=== PATIENT | female | born 1950 | race Caucasian/White ===

== ENCOUNTER 2016-08-06 13:48 | Inpatient (IN) ==
--- NOTE | 2016-08-06 17:25 | Emergency Department Note ---
Disposition Clinical Impression: Swelling of lower extremity, Hyperkalemia DVT (deep venous thrombosis) Qualifiers: DVT location: lower extremity Affected thrombotic vein of extremity: unspecified vein of extremity Laterality: right Chronicity: unspecified Qualified Code(s): I82.401 - Acute embolism and thrombosis of unspecified deep veins of right lower extremity CKD (chronic kidney disease) Qualifiers: Chronic kidney disease stage: unspecified stage Qualified Code(s): N18.9 - Chronic kidney disease, unspecified Disposition: Admitted As Inpatient Condition: Good Extremity Problem HPI - General Chief complaint: ED Extremity Problem,Nontraumatic Stated complaint: right leg swelling, r/o DVT Time Seen by Provider: 08/06/16 17:15 Source: patient Mode of arrival: ambulatory Limitations: no limitations Nursing Notes Reviewed: Yes Vital Signs Reviewed: Yes - History of Present Illness HPI Narrative: 65-year-old female presents for evaluation of right lower leg swelling. Patient states that approximately 6 days ago she had some right inguinal groin pain. Since then the patient has noted progressive swelling of her lower leg over the past 2 days. No redness to the lower leg. Patient has anterior lateral thigh pain and anterior lower lateral leg pain. Patient denies any fevers. No shortness of breath or positive breathing. No active cancers. Patient does have a remote history of uterine as well as vaginal cancer. No exogenous estrogen. No recent long car rides. No hemoptysis. Patient denies a history of DVT or pulmonary embolisms. Pain Scale: 5 - Related Data Home Medications Medication Instructions Recorded Confirmed Cetirizine HCl [Zyrtec] 10 mg PO QPM 10/31/15 08/06/16 Citalopram [CeleXA] 20 mg PO QAM 10/31/15 08/06/16 Lisinopril [Zestril] 20 mg PO QAM 10/31/15 08/06/16 Magnesium Oxide [Magnesium] 500 mg PO QAM 10/31/15 08/06/16 [place]-3/Dha/Epa/Fish Oil [Fish Oil 1 each PO QPM 10/31/15 08/06/16 1,000 mg Softgel] Vitamin E (Dl,Tocopheryl Acet) 400 unit PO BID 10/31/15 08/06/16 [Vitamin E] Amlodipine [Norvasc] 2.5 mg PO QAM 08/06/16 08/06/16 Dexamethasone [Decadron] 4 mg PO DAILY 08/06/16 08/06/16 Gabapentin [Neurontin] 100 mg PO BID 08/06/16 08/06/16 Hydroxyzine HCl 25 mg PO BID PRN 08/06/16 08/06/16 Lisinopril [Zestril] 10 mg PO QPM 08/06/16 08/06/16 Metoprolol Tartrate 25 mg PO BID 08/06/16 08/06/16 Allergies Allergy/AdvReac Type Severity Reaction Status Date / Time doxycycline Allergy Itching Verified 08/06/16 18:53 nystatin [From Mycolog II] Allergy Rash Verified 08/06/16 18:53 Penicillins Allergy Swelling Verified 08/06/16 18:53 of Lip/Tongue/Throat Sulfa (Sulfonamide Allergy See Verified 08/06/16 18:53 Antibiotics) Comments triamcinolone Allergy Rash Verified 08/06/16 18:53 [From Mycolog II] All systems ED: reviewed and negative except as stated. Constitutional: Reports: as per HPI. Denies: fever Eyes: Reports: as per HPI ENT ED: Reports: as per HPI Cardiovascular: Reports: as per HPI. Denies: chest pain, palpitations Respiratory: Reports: as per HPI. Denies: cough, dyspnea Gastrointestinal: Reports: as per HPI. Denies: abdominal pain, nausea, vomiting Genitourinary: Reports: as per HPI Musculoskeletal: Reports: as per HPI Integumentary: Reports: as per HPI Neurological: Reports: as per HPI. Denies: headache Psychiatric: Reports: as per HPI Endocrine: Reports: as per HPI Hematological/Lymphatic: Reports: as per HPI Allergic/Immunologic: Reports: as per HPI Past Medical History - Past Medical History Medical history: Reports: hypertension, other Surgical history: Reports: non-contributory Psychiatric history: Reports: no psych history - Social History Smoking Status: Current every day smoker Smokeless Tobacco Status: No Alcohol use: Reports: occasionally Drug use: Reports: none Physical Exam - General Limitations: no limitations General appearance: alert, in no apparent distress - Head Head exam: atraumatic, normocephalic, normal inspection - Eye Eye exam: Present: normal appearance, EOMI - ENT ENT exam: normal exam, normal oropharynx, mucous membranes moist - Neck Neck exam: Present: normal inspection, trachea midline - Chest Chest inspection: Present: normal inspection, symmetric chest wall rise - Respiratory Respiratory exam: Present: normal lung sounds bilaterally. Absent: respiratory distress - Cardiovascular Cardiovascular exam: Present: regular rate, normal rhythm, +S1, +S2 - Abdominal Exam Abdominal exam: Present: soft, Non-Tender - Expanded Lower Extremity Exam Hip/Pelvis exam: Present: normal inspection. Absent: tenderness Upper leg exam: Present: normal inspection, tenderness (Right leg anterior lateral), swelling (Right leg). Absent: ecchymosis Knee exam: Present: normal inspection Lower leg exam: Present: normal inspection, tenderness (Anterior lateral), swelling (Right leg). Absent: ecchymosis, deformity, crepitus, palpable cord, Homans' sign Ankle exam: Present: normal inspection Neurovascular/Tendon exam: Present: normal capillary refill, pulse deficit ( palpable dp) - Back Exam Back exam: Present: normal inspection - Neurological Exam Neurological exam: Present: alert, oriented X3, CN II-XII intact - Skin Skin exam: Present: warm, dry, intact, normal color Course Course Narrative: Patient seen and examined. Patient has a history concerning for blood clot in her right lower leg. Patient then venous Doppler of the right lower leg as well as basic lab work including chemistries and coagulation studies. - Reevaluation(s) Reevaluation #1: Patient seen and examined. Patient's in no acute distress. Patient's studies show diffuse right lower leg clot burden with clots in the deep and superficial veins of the right leg. Patient denies any chest pain or shortness of breath. Patient's not hypoxic. Patient was started on heparin. Time: 18:46 Vital Signs Temperature 98.3 F 08/06/16 15:00 Pulse Rate 66 08/06/16 15:00 Respiratory Rate 18 08/06/16 15:00 Blood Pressure 108/49 08/06/16 15:00 O2 Sat by Pulse Oximetry 96 08/06/16 15:00 Temperature 98.3 F 08/06/16 15:00 Pulse Rate 61 08/06/16 18:26 Respiratory Rate 18 08/06/16 19:31 Blood Pressure 107/49 08/06/16 19:31 O2 Sat by Pulse Oximetry 97 08/06/16 18:26 Oxygen Delivery Oxygen Delivery Room Air Extremity Problem, Nontraumati - MDM Narrative Medical decision making narrative: 65-year-old female presents for reevaluation of right lower leg swelling. Concerns of DVT. Patient denies any risk factors. No recent travel no exogenous estrogen. No hemoptysis. No recent trauma to the lower leg. Patient has no risk factors to provoke a blood clot. Patient had imaging of the lower leg which shows diffuse clot burden in this deep and superficial venous system. Patient will be admitted to the hospital for further evaluation monitoring. Patient was started on heparin. CTA was not ordered in the emergency department as the patient has not been having a short course of breath or chest pain. Would not really change treatment management. Patient was updated on plan of care. Patient denies any symptoms at this time. Patient 's lab work does show hyperkalemia of 5.9. Patient does have evidence chronic kidney disease. - Lab Data Lab results reviewed: Yes I reviewed the patient's lab results. Result diagrams: 08/06/16 18:36 08/06/16 18:36 Lab Results 08/06/16 08/06/16 08/06/16 Range/Units 18:36 18:36 18:36 WBC 10.8 (4.3-11.1) K/mcL RBC 4.03 (3.82-4.97) M/mcL Hgb 10.1 L (11.5-15.4) g/dL Hct 33.1 L (35.3-44.9) % MCV 82.1 L (83.0-100.0) fL MCH 25.1 L (28.0-33.3) pg MCHC 30.5 L (31.6-35.5) g/dL RDW 14.6 H (11.5-14.5) % Plt Count 257 (140-400) K/mcL MPV 9.8 (9.4-12.4) fL PT 10.7 (9.4-12.1) Seconds INR 1.0 APTT 24.4 L (26.0-36.0) Seconds Sodium 138 (136-145) mEq/L Potassium 5.9 H (3.5-4.5) mEq/L Chloride 106 (98-109) mEq/L Carbon Dioxide 22 (19-29) mEq/L BUN 26 H (7-20) mg/dL Creatinine 1.32 H (0.57-1.11) mg/dL Est GFR ( Amer) 49 L (> 60) Est GFR (Non-Af Amer) 41 L (> 60) BUN/Creatinine Ratio 20 (6-26) Glucose 80 (70-99) mg/dL Calculated Osmolality 290 (280-300) Calcium 8.8 (8.6-10.8) mg/dL S.B.A.R. - S.B.A.RWen Situation: Demographics Background: Presenting Complaint Assessment: Vital Signs, Course and respsone to treatment, Patient/Family Expectation Recommendation: Barrier(s) to disposition, Recommendation based on pending studies, treatments, or consults S.B.A.R. Report Given to: Dr. Campbell SVietAJoya Repor Time: 18:50 Attestation Statement - Attestation Attestation: I examined this patient and my medical decision-making was reviewed with the DIRECTOR APPOINTMENT/PA/Advanced Practice Nurse/Resident Physician. I agree with the documented findings, disposition and treatment plan as described except to the extent set forth below. Patient emergency department with a chief complaint of right leg swelling. She started having pain in her groin a few days ago. Now the entire leg is swollen. On exam she is awake and alert in no distress. Heart regular rate and rhythm lungs clear. Abdomen soft nontender. She does have significant amount of swelling to the right leg with no palpable cord. Foot pink and warm with a good pulse. Plan. Ultrasound rule out DVT.
[2016-08-06] MEDS ORDERED: *HR* Heparin 5,000 UNIT/ML VIAL IVP ONE (18:23)
[2016-08-06 18:42] LABS: Hematocrit 33.1 % (35.3-44.9); Hemoglobin 10.1 g/dL (11.5-15.4); Mean Corpuscular HGB Conc 30.5 g/dL (31.6-35.5); Mean Corpuscular Hemoglobin 25.1 pg (28.0-33.3); Mean Corpuscular Volume 82.1 fL (83.0-100.0); Mean Platelet Volume 9.8 fL (9.4-12.4); Platelet Count 257 K/mcL (140-400); Red Blood Count 4.03 M/mcL (3.82-4.97); Red Cell Distribution Width 14.6 % (11.5-14.5)
[2016-08-06 18:49] LABS: Prothrombin Time 10.7 Seconds (9.4-12.1)
[2016-08-06 18:51] LABS: Activated Partial Thrombo Time 24.4 Seconds (26.0-36.0)
[2016-08-06 18:56] LABS: Calcium 8.8 mg/dL (8.6-10.8); Potassium 5.9 mEq/L (3.5-4.5)
[2016-08-06] MEDS: Heparin 25,000 UNIT/500 ML D5W 25,000 UNIT/500 ML MLS IVC SCH (19:05)
[2016-08-06] MEDS ORDERED: Acetaminophen 325 MG TABLET PO PRN (20:13)
--- NOTE | 2016-08-06 20:32 | Internal Med History&Physical ---
Addendum entered and electronically signed by Damián Alegria DO 23:44: Correction: Time of encounter: 20:00 Original Note: <Damián Alegria - Last Filed: 08/06/16 22:05> Date of Encounter: 08/06/16 Time of Encounter: 08:00 Assessment and Plan (1) DVT (deep venous thrombosis) Current visit: Yes Status: Acute DVT of R lower extremity. Verbal confirmation, radiology sending preliminary report now. Risk factors include: History of cancer and smoking history. Denies trauma, travel. Denies shortness of breath. Patient currently on Heparin drip. Need to discussed detention anticoagulation. With history of GI bleed and anemia, patient a more likely candidate for coumadin or other anticoagulation therapy with reversal agents available. Qualifiers: DVT location: lower extremity Affected thrombotic vein of extremity: unspecified vein of extremity Laterality: right Chronicity: unspecified Qualified Code(s): I82.401 - Acute embolism and thrombosis of unspecified deep veins of right lower extremity (2) Hyperkalemia Current visit: Yes Status: Acute Acute on chronic. History of elevated potassium. Currently 5.9, compared to past K+ stable at 4.5. Holding lisinopril. EKG ordered. Kayexalate ordered, will recheck K+. Continue to monitor electrolytes and for EKG changes. EKG reviewed: no peaked T waves noted. (3) CKD (chronic kidney disease) Current visit: Yes Status: Chronic CKD secondary to NSAID use in the setting of chronic back pain due to DDD. Stage 3, SCr 1.32, eGFR 41. Avoid nephrotoxins. Qualifiers: Chronic kidney disease stage: stage 3 (moderate) Qualified Code(s): N18.3 - Chronic kidney disease, stage 3 (moderate) (4) Anemia Current visit: Yes Status: Chronic History of hospitalization 2 years ago, requiring multiple transfusions. Bleeding GI ulcer found at that time. Patient states she take acid reducers prn. Ongoing history of anemia, patient states goal has been to keep Hgb around 12. Currently H/H is 10.1/33.1. Patient does note recent increased "gurgling", denies any changes in bowel movements, denies melena. Start protonix. Monitor H/H. Qualifiers: Iron deficiency anemia type: chronic blood loss Qualified Code(s): D50.0 - Iron deficiency anemia secondary to blood loss (chronic) (5) HTN (hypertension) Current visit: Yes Status: Chronic Continue home medications, with exception of holding lisinopril currently in the setting of increased Potassium. Consider resuming as potassium improves. CKD currently stable. Qualifiers: Hypertension type: essential hypertension Qualified Code(s): I10 - Essential (primary) hypertension (6) History of uterine cancer Current visit: Yes Status: Chronic Uterine cancer 30 years ago, vaginal cancer 20 years ago. Underwent hysterectomy and chemo. Been in remission since. (7) Tobacco use Current visit: No Status: Chronic Current 1ppd smoker. Ordered nicotine patch. Patient notes history of pneumonia approx 2-4 weeks ago. Clinically improving since. Internal Medicine - H&P: HPI Chief complaint: Right leg swelling Admitted From: Emergency Dept Plans for Post Hospital Care: Home History of present illness: Ms. Brantley is a 65 year old female that presented to the ED for gradual right leg swelling, that began with right groin pain 6 days ago. PMHx of CKD, uterine/ vaginal cancer, anemia, HTN, and DDD in her back. Patient states the groin pain was severe enough to wake her at approx 3am on 07/31/16. That pain has since subsided, but her right leg has continued to swell and has been painful the past 2 days. Patient states her right leg throbs, has some numbness and tingling at times, and she rates the severity as a 5/10 currently. Patient denies any weakness in the extremity or any color/skin changes. Patient denies any nausea, vomiting, abdominal pain, melena, diarrhea. Of note, patient mentions improving respiratory status. Jac diagnosed with pneumonia approx 2 weeks ago, denies any shortness of breath. Patient does admit to cough and continuing to smoke 1 ppd. Past Med Surg Social Fam HX - Past Medical History Medical history: hypertension, other Psychiatric history: no psych history - Past Surgical History Surgical History: non-contributory - Social History Smoking Status: Current every day smoker Smokeless Tobacco Status: No Alcohol use: occasionally Drug use: none - Family History Mother Adopted: No Hx Family Cardiac Disorders: Yes Hx Family Endocrine Disorder: Yes (dm) Father Living Status: Hx Family Cardiac Disorders: Yes (HTN) Hx Family Respiratory Disorders: Yes (COPD) Internal Medicine - H&P: Meds Cetirizine HCl [Zyrtec] 10 mg PO QPM 10/31/15 [History] Citalopram [CeleXA] 20 mg PO QAM 10/31/15 [History] Lisinopril [Zestril] 20 mg PO QAM 10/31/15 [History] Magnesium Oxide [Magnesium] 500 mg PO QAM 10/31/15 [History] [place]-3/Dha/Epa/Fish Oil [Fish Oil 1,000 mg Softgel] 1 each PO QPM 10/31/15 [ History] Vitamin E (Dl,Tocopheryl Acet) [Vitamin E] 400 unit PO BID 10/31/15 [History] Amlodipine [Norvasc] 2.5 mg PO QAM 08/06/16 [History] Dexamethasone [Decadron] 4 mg PO DAILY 08/06/16 [History] Gabapentin [Neurontin] 100 mg PO BID 08/06/16 [History] Hydroxyzine HCl 25 mg PO BID PRN 08/06/16 [History] Lisinopril [Zestril] 10 mg PO QPM 08/06/16 [History] Metoprolol Tartrate 25 mg PO BID 08/06/16 [History] Allergies doxycycline Allergy (Verified 08/06/16 18:53) Itching nystatin [From Mycolog II] Allergy (Verified 08/06/16 18:53) Rash Penicillins Allergy (Verified 08/06/16 18:53) Swelling of Lip/Tongue/Throat Sulfa (Sulfonamide Antibiotics) Allergy (Verified 08/06/16 18:53) See Comments Swelling triamcinolone [From Mycolog II] Allergy (Verified 08/06/16 18:53) Rash All Systems PM: A 10-system review of systems was performed and is negative for pertinent findings except as documented above in the HPI. - Constitutional Constitutional: no falls, no lethargy - Cardiovascular Cardiovascular ROS IM: as per HPI, edema, no chest pain, no dyspnea, no lightheadedness, no palpitations, no syncope - Respiratory Respiratory: as per HPI, cough, wheezing - Gastrointestinal Gastrointestinal: belching (increased "gurgling"), no abdominal pain, no change in bowel habits, no change in stool character, no diarrhea, no hematemesis, no melena, no nausea, no vomiting - Genitourinary Genitourinary: no dysuria - Musculoskeletal Musculoskeletal ROS IM: back pain, muscle cramps, numbness, tingling - Neurological Neurological ROS: numbness, tingling, no dizziness - Constitutional Vitals: Temp Pulse Resp BP Pulse Ox 98.3 F 61 18 107/49 97 08/06/16 15:00 08/06/16 18:26 08/06/16 19:31 08/06/16 19:31 08/06/16 18:26 General appearance: Present: cooperative, A&O X 3, no acute distress, obese, answers questions appropriately - Head Head exam: Present: atraumatic, normocephalic - Eye Eye exam: Present: EOMI, PERRL, conjuntiva pink, sclera anicteric Pupils: Present: PERRL - Neck Neck exam general surgery: Present: full ROM, supple, trachea midline - Respiratory Respiratory exam: Present: rhonchi, wheezes. Absent: accessory muscle use, rales, respiratory distress - Cardiovascular Cardiovascular exam: Present: RRR, +S1, +S2. Absent: diastolic murmur, gallop, rubs, systolic murmur - GI/Abdominal GI/Abdominal exam: Present: normal bowel sounds, soft, no peritoneal signs. Absent: distended, tenderness - Extremities Exam Extremities exam: Present: calf tenderness, pedal edema (Nonpitting, swelling of the R>L ), warm, radial pulses palpable and symetrical. Absent: cyanotic, mottling - Neurological Exam Neurological exam: Present: alert, oriented X3, no focal deficits. Absent: facial droop, speech deficit - Skin Skin exam: Present: dry, intact Internal Med - H&P Results - Labs CBC & Chem 7: 08/06/16 18:36 08/06/16 18:36 - EKG Data -: EKG Interpreted by Myself EKG shows normal: sinus rhythm Rate: normal - EKG Data Prior EKG available for review: no <Mulu Campbell - Last Filed: 08/07/16 00:07> Date of Encounter: 08/07/16 Internal Medicine - H&P: HPI History of present illness: Ms. Brantley is a 65 year old female All Systems PM: A 10-system review of systems was performed and is negative for pertinent findings except as documented above in the HPI. - Constitutional Vitals: Temp Pulse Resp BP Pulse Ox 98.5 F 64 16 99/63 93 L 08/06/16 23:33 08/06/16 23:33 08/06/16 23:33 08/06/16 23:33 08/06/16 23:33 Internal Med - H&P Results - Labs CBC & Chem 7: 08/06/16 18:36 08/06/16 18:36 - Attending Attestation I have seen and examined pt, I discussed with resident regarding the management plan, I agree with the documentation.
[2016-08-06] MEDS ORDERED: Ipratropium/Albuterol Neb 3 ML IH PRN (22:01)
[2016-08-06] MEDS: Gabapentin 100 MG CAPSULE PO SCH (23:07)
[2016-08-07] MEDS ORDERED: *HR* Heparin 5,000 UNIT/ML VIAL IVP PRN ×2 (00:11)
[2016-08-07] MEDS: Famotidine 20 MG TABLET PO SCH ×3 (01:00→21:27)
[2016-08-07 01:23] LABS: Basophils # 0.1 K/mcL (0.0-0.2); Basophils % 0.5 %; Eosinophils # 0.6 K/mcL (0.0-0.6); Eosinophils % 6.3 %; Hematocrit 29.3 % (35.3-44.9); Hemoglobin 8.9 g/dL (11.5-15.4); Immature Granulocytes % 0.7 % (0-4); Lymphocytes # 3.2 K/mcL (0.6-4.6); Lymphocytes % 33.8 %; Mean Corpuscular HGB Conc 30.4 g/dL (31.6-35.5); Mean Corpuscular Hemoglobin 24.9 pg (28.0-33.3); Mean Corpuscular Volume 81.8 fL (83.0-100.0); Mean Platelet Volume 9.5 fL (9.4-12.4); Monocytes # 0.9 K/mcL (0.0-1.3); Monocytes % 9.4 %; Neutrophils # 4.6 K/mcL (1.6-8.9); Platelet Count 222 K/mcL (140-400); Red Blood Count 3.58 M/mcL (3.82-4.97); Red Cell Distribution Width 14.3 % (11.5-14.5); Segmented Neutrophils % 49.3 %
[2016-08-07] MEDS ORDERED: Mag Hydrox/Al Hydrox/Simeth 30 ML UDC PO PRN (01:24)
[2016-08-07 01:28] LABS: INR 1.1; Prothrombin Time 11.4 Seconds (9.4-12.1)
[2016-08-07 01:32] LABS: Activated Partial Thrombo Time 92.4 Seconds (26.0-36.0)
[2016-08-07 01:36] LABS: Calcium 8.5 mg/dL (8.6-10.8); Potassium 3.9 mEq/L (3.5-4.5)
[2016-08-07 08:33] LABS: INR 1.1; Prothrombin Time 11.5 Seconds (9.4-12.1)
[2016-08-07 08:50] LABS: Activated Partial Thrombo Time 77.9 Seconds (26.0-36.0)
[2016-08-07] MEDS: Magnesium Oxide 400 MG TABLET PO SCH (08:54)
[2016-08-07] MEDS: Pantoprazole 40 MG VIAL IVP SCH (08:54)
[2016-08-07] MEDS: Gabapentin 100 MG CAPSULE PO SCH ×2 (08:55→21:28)
[2016-08-07] MEDS: Nicotine 14 MG PATCH.TD24 TD SCH (08:55)
[2016-08-07] MEDS: amLODIPine 5 MG TABLET PO SCH (08:55)
[2016-08-07] MEDS ORDERED: *HR* Warfarin 5 MG TABLET PO ONE (14:33)
--- NOTE | 2016-08-07 14:41 | Internal Med Progress Note ---
Date of Encounter: 08/07/16 Time of Encounter: 10:00 - Assessment and plan (1) DVT (deep venous thrombosis) Current Visit: Yes Status: Acute Assessment and plan: Patient has acute DVT. There is no clear provoking factors. We will continue heparin drip and start by mouth Coumadin today. Patient is at high risk because she is on heparin drip, which need closely monitoring Qualifiers: DVT location: lower extremity Affected thrombotic vein of extremity: unspecified vein of extremity Laterality: right Chronicity: unspecified Qualified Code(s): I82.401 - Acute embolism and thrombosis of unspecified deep veins of right lower extremity (2) DVT prophylaxis Current Visit: Yes Status: Acute Assessment and plan: Patient is on heparin drip and Coumadin (3) CKD (chronic kidney disease) Current Visit: Yes Status: Chronic Assessment and plan: Stable at her baseline Qualifiers: Chronic kidney disease stage: stage 3 (moderate) Qualified Code(s): N18.3 - Chronic kidney disease, stage 3 (moderate) (4) HTN (hypertension) Current Visit: Yes Status: Chronic Assessment and plan: BP is stable. Continue metoprolol and hydralazine. Hold lisinopril because of CKD Qualifiers: Hypertension type: essential hypertension Qualified Code(s): I10 - Essential (primary) hypertension (5) Tobacco use Current Visit: No Status: Chronic Assessment and plan: Patient is on nicotine patch - Time Spent With Patient Greater than 35 minutes - Subjective Interval history: Patient is a 65-year-old female admitted for right leg pain and swelling, diagnosed as acute DVT. Past medical history is significant for hypertension. I have seen and examined the patient today. She said that she has less pain on her right leg. The right leg is still swelling and thicker than the left side. Discussed with patient the options ORAL anticoagulations. Patient preferred Coumadin because she has financial concern for new oral anticoagulation medications. Will start Coumadin today, continue Bridged with heparin drip, closely follow up PT/INR. - Constitutional Vitals: Temp Pulse Resp BP Pulse Ox 98.4 F 62 16 116/68 96 08/07/16 07:50 08/07/16 07:50 08/07/16 07:50 08/07/16 07:50 08/07/16 07:50 General appearance: Present: cooperative, A&O X 3, no acute distress, obese, answers questions appropriately - Head Head exam: Present: atraumatic, normocephalic - Eye Eye exam: Present: PERRL, conjuntiva pink, sclera anicteric Pupils: Present: PERRL - Neck Neck exam general surgery: Present: supple, trachea midline. Absent: lymphadenopathy - Respiratory Respiratory exam: Present: CTAB. Absent: accessory muscle use, rales, rhonchi, wheezes - Cardiovascular Cardiovascular exam: Present: RRR, +S1, +S2. Absent: diastolic murmur, gallop, rubs, systolic murmur - GI/Abdominal GI/Abdominal exam: Present: normal bowel sounds, soft, no peritoneal signs. Absent: distended, tenderness - Extremities Exam Extremities exam: Present: calf tenderness (On the right leg), warm, radial pulses palpable and symetrical. Absent: cyanotic, pedal edema Additional comments: Right leg swelling and it is thicker than the left one - Neurological Exam Neurological exam: Present: CN II-XII intact, oriented X3, no focal deficits. Absent: pronater drift, facial droop, speech deficit - Skin Skin exam: Present: dry, intact Internal Medicine: Result - Labs CBC & Chem 7: 08/07/16 01:04 08/07/16 01:04 - ABG Interpretation ABG results: PT/INR, D-dimer PT 11.5 Seconds (9.4-12.1) 08/07/16 08:02 Consult Discharge Plan - Plan Referrals: Rebecca Gilbert CNP [Primary Care Provider] - 08/16/16 9:30 am
--- NOTE | 2016-08-07 15:53 | Electrocardiograph Report ---
[facility] Test Date: 2016-08-06 Pat Name: Jack Brantley Department: 115 Room: 3A41 Gender: F Senior Web Applications Developer: JIM : 1950 Requested By: Damián Alegria Order Number: [id number] Reading MD: Maddy Almonte Measurements Intervals [place] Rate: 67 P: 62 VT: 163 QRS: 23 QRSD: 102 T: 11 QT: 410 QTc: 426 Interpretive Statements SINUS RHYTHM PROBABLE INFERIOR MYOCARDIAL INFARCTION, PROBABLY OLD Electronically Signed On 08-07-16 15:51:15 EST by Maddy Almonte
[2016-08-07] MEDS: Heparin 25,000 UNIT/500 ML D5W 25,000 UNIT/500 ML MLS IVC SCH (16:04)
[2016-08-07] MEDS: Loratadine 10 MG TABLET PO SCH (17:14)
--- NOTE | 2016-08-07 17:33 | Venous Imaging Report ---
LE Venous Duplex Patient Name:Jack Brantley Order Number:[id number] Procedure Date:08/06/2016 Date:1950ge:65 yrs Gender:Female Rt.BP:108 / 49 mmHgHeart Rate: Location:[facility] ED Room #: ER5 Biologist:Kayla Armenta Referring MD:Dnai López DO mud logger:Rebecca Gilbert, ACCESS SERVICES LIBRARIAN Reading MD:Dino Nguyen MD , FACS Primary Indications:Swelling of limb Secondary Indications: Impressions: Lower extremity abnormal deep exam: right iliac through tibial vein demonstrates acute thrombosis. Lower extremity abnormal superficial exam: right great saphenousvein and lesser saphenous vein demonstrate acute thrombosis. Left lower extremity: normal contralateral exam. Recommendations: Test completed on 08/06/2016 at 6:18:00 pm. Critical findings reported to Dr López and Dr Mcqueen in person at 6:20:00 pm on 08/06/2016 by Kayla Armenta. Findings Venous Duplex Results: Right: There is an acute occlusive thrombus seen in the right distal iliac. It demonstrates an incompressible vein. Flow was absent and it did not augment. There is an acute occlusive thrombus seen in the right common femoral. It demonstrates an incompressible vein. Flow was absent and it did not augment. There is an acute occlusive thrombus seen in the right superficial femoral. It demonstrates an incompressible vein. Flow was absent and it did augment. There is an acute partially occlusive thrombus seen in the right popliteal. It demonstrates a partially compressible vein. Flow was continuous and it did not augment. There is an acute partially occlusive thrombus seen in the right posterior tibial. It demonstrates a partially compressible vein. Flow was continuous and it did augment. There is an acute partially occlusive thrombus seen in the right peroneal. It demonstrates a partially compressible vein. Flow was continuous and it did augment. There is an acute partially occlusive thrombus seen in the right great saphenous. It demonstrates a partially compressible vein. Flow was continuous and it did not augment. There is an acute partially occlusive thrombus seen in the right lesser saphenous. It demonstrates a partially compressible vein. Flow was continuous and it did not augment. Left: Venous imaging of the lower extremity reveals full patency and normal vessel compressibility of the left common femoral. Doppler signals in the evaluated veins were normal. Prior Study: No prior study available for comparison. Lower Extremity Venous Duplex Side Vein Compress Spontaneous Flow Augment Diameter (cm) Depth (cm) Right Distal Iliac None no Absent no Right Common Femoral None no Absent no Right Superficial Femoral None no Absent yes Right Popliteal Partial no Continuous no Right Posterior Tibial Partial no Continuous yes Right Peroneal Partial no Continuous yes Right Great Saphenous Partial no Continuous no Right Lesser Saphenous Partial no Continuous no Left Common Femoral Normal yes Phasic yes Updated by Dino Nguyen MD, FACS on 08/07/2016 5:29:22 PM Dino Nguyen MD electronically signed on 08/07/2016 5:29:48 PM with status of Final
[2016-08-08 05:58] LABS: Basophils # 0.1 K/mcL (0.0-0.2); Basophils % 0.7 %; Eosinophils # 0.4 K/mcL (0.0-0.6); Eosinophils % 5.9 %; Hematocrit 28.2 % (35.3-44.9); Hemoglobin 8.5 g/dL (11.5-15.4); Immature Granulocytes % 0.6 % (0-4); Lymphocytes # 2.1 K/mcL (0.6-4.6); Lymphocytes % 30.2 %; Mean Corpuscular HGB Conc 30.1 g/dL (31.6-35.5); Mean Corpuscular Hemoglobin 24.7 pg (28.0-33.3); Mean Platelet Volume 9.6 fL (9.4-12.4); Monocytes # 0.7 K/mcL (0.0-1.3); Monocytes % 9.3 %; Neutrophils # 3.7 K/mcL (1.6-8.9); Platelet Count 224 K/mcL (140-400); Red Blood Count 3.44 M/mcL (3.82-4.97); Red Cell Distribution Width 14.5 % (11.5-14.5); Segmented Neutrophils % 53.3 %
[2016-08-08 06:03] LABS: INR 1.1; Prothrombin Time 11.6 Seconds (9.4-12.1)
[2016-08-08] MEDS: Magnesium Oxide 400 MG TABLET PO SCH (08:41)
[2016-08-08] MEDS: Famotidine 20 MG TABLET PO SCH ×2 (08:41→21:03)
[2016-08-08] MEDS: Pantoprazole 40 MG VIAL IVP SCH (08:41)
[2016-08-08] MEDS: amLODIPine 5 MG TABLET PO SCH (08:42)
[2016-08-08] MEDS: Gabapentin 100 MG CAPSULE PO SCH ×2 (08:42→21:03)
[2016-08-08] MEDS: Nicotine 14 MG PATCH.TD24 TD SCH (08:43)
[2016-08-08] MEDS: Heparin 25,000 UNIT/500 ML D5W 25,000 UNIT/500 ML MLS IVC SCH (13:45)
--- NOTE | 2016-08-08 14:44 | Internal Med Progress Note ---
Date of Encounter: 08/08/16 Time of Encounter: 10:00 - Assessment and plan (1) DVT (deep venous thrombosis) Current Visit: Yes Status: Acute Assessment and plan: Patient has acute DVT. There is no clear provoking factors. We will continue heparin drip and start by mouth Coumadin. Patient is at high risk because she is on heparin drip, which need closely monitoring Qualifiers: DVT location: lower extremity Affected thrombotic vein of extremity: unspecified vein of extremity Laterality: right Chronicity: unspecified Qualified Code(s): I82.401 - Acute embolism and thrombosis of unspecified deep veins of right lower extremity (2) DVT prophylaxis Current Visit: Yes Status: Acute Assessment and plan: Patient is on heparin drip and Coumadin (3) CKD (chronic kidney disease) Current Visit: Yes Status: Chronic Assessment and plan: Stable at her baseline Qualifiers: Chronic kidney disease stage: stage 3 (moderate) Qualified Code(s): N18.3 - Chronic kidney disease, stage 3 (moderate) (4) HTN (hypertension) Current Visit: Yes Status: Chronic Assessment and plan: BP is stable. Continue metoprolol and hydralazine. Hold lisinopril because of CKD Qualifiers: Hypertension type: essential hypertension Qualified Code(s): I10 - Essential (primary) hypertension (5) Tobacco use Current Visit: No Status: Chronic Assessment and plan: Patient is on nicotine patch - Time Spent With Patient Greater than 35 minutes - Subjective Interval history: Patient is a 65-year-old female admitted for right leg pain and swelling, diagnosed as acute DVT. Past medical history is significant for hypertension. I have seen and examined the patient today. She said that she has less pain on her right leg. The right leg is still swelling and thicker than the left side. Keep coumadin, continue Bridged with heparin drip, closely follow up PT/INR. Will not place her on lovenox considering her poor renal function. - Constitutional Vitals: Temp Pulse Resp BP Pulse Ox 98.4 F 70 16 142/74 96 08/08/16 10:00 08/08/16 10:00 08/08/16 10:00 08/08/16 10:00 08/08/16 10:00 General appearance: Present: cooperative, A&O X 3, no acute distress, obese, answers questions appropriately - Head Head exam: Present: atraumatic, normocephalic - Eye Eye exam: Present: PERRL, conjuntiva pink, sclera anicteric Pupils: Present: PERRL - Neck Neck exam general surgery: Present: supple, trachea midline. Absent: lymphadenopathy - Respiratory Respiratory exam: Present: CTAB. Absent: accessory muscle use, rales, rhonchi, wheezes - Cardiovascular Cardiovascular exam: Present: RRR, +S1, +S2. Absent: diastolic murmur, gallop, rubs, systolic murmur - GI/Abdominal GI/Abdominal exam: Present: normal bowel sounds, soft, no peritoneal signs. Absent: distended, tenderness - Extremities Exam Extremities exam: Present: pedal edema (Tenderness and swelling on her right leg ), tenderness, warm, radial pulses palpable and symetrical. Absent: calf tenderness, cyanotic - Neurological Exam Neurological exam: Present: CN II-XII intact, oriented X3, no focal deficits. Absent: pronater drift, facial droop, speech deficit - Skin Skin exam: Present: dry, intact Internal Medicine: Result - Labs CBC & Chem 7: 08/08/16 05:41 08/08/16 05:41 Labs: Short CBC 08/08/16 Range/Units 05:41 WBC 7.0 (4.3-11.1) K/mcL Hgb 8.5 L (11.5-15.4) g/dL Hct 28.2 L (35.3-44.9) % Plt Count 224 (140-400) K/mcL Neutrophils # 3.7 (1.6-8.9) K/mcL BMP 08/08/16 05:41 Sodium 139 Potassium 5.0 H D Chloride 106 Carbon Dioxide 29 BUN 21 H Creatinine 1.29 H Glucose 95 Calcium 9.0 - ABG Interpretation ABG results: PT/INR, D-dimer PT 11.6 Seconds (9.4-12.1) 08/08/16 05:41 Consult Discharge Plan - Plan Referrals: Rebecca Gilbert CNP [Primary Care Provider] - 08/16/16 9:30 am
[2016-08-08] MEDS ORDERED: Warfarin perPT PO PRN (18:00)
[2016-08-08] MEDS ORDERED: *HR* Warfarin 5 MG TABLET PO SCH (18:00)
[2016-08-08] MEDS: Loratadine 10 MG TABLET PO SCH (18:25)
[2016-08-09 06:04] LABS: Basophils % 0.4 %; Eosinophils # 0.5 K/mcL (0.0-0.6); Eosinophils % 6.7 %; Hematocrit 28.7 % (35.3-44.9); Hemoglobin 8.7 g/dL (11.5-15.4); Immature Granulocytes % 0.8 % (0-4); Lymphocytes # 1.7 K/mcL (0.6-4.6); Lymphocytes % 23.5 %; Mean Corpuscular HGB Conc 30.3 g/dL (31.6-35.5); Mean Corpuscular Hemoglobin 24.8 pg (28.0-33.3); Mean Corpuscular Volume 81.8 fL (83.0-100.0); Mean Platelet Volume 9.8 fL (9.4-12.4); Monocytes # 0.7 K/mcL (0.0-1.3); Monocytes % 9.5 %; Neutrophils # 4.3 K/mcL (1.6-8.9); Platelet Count 233 K/mcL (140-400); Red Blood Count 3.51 M/mcL (3.82-4.97); Red Cell Distribution Width 14.4 % (11.5-14.5); Segmented Neutrophils % 59.1 %
[2016-08-09 06:11] LABS: Prothrombin Time 11.1 Seconds (9.4-12.1)
[2016-08-09 06:15] LABS: Activated Partial Thrombo Time 63.1 Seconds (26.0-36.0)
[2016-08-09 06:15] LABS: Calcium 8.7 mg/dL (8.6-10.8); Potassium 4.4 mEq/L (3.5-4.5)
[2016-08-09] MEDS: amLODIPine 5 MG TABLET PO SCH (08:43)
[2016-08-09] MEDS: Gabapentin 100 MG CAPSULE PO SCH ×2 (08:43→20:15)
[2016-08-09] MEDS: Famotidine 20 MG TABLET PO SCH (08:43)
[2016-08-09] MEDS: Magnesium Oxide 400 MG TABLET PO SCH (08:43)
[2016-08-09] MEDS: Pantoprazole 40 MG VIAL IVP SCH (08:44)
[2016-08-09] MEDS: Nicotine 14 MG PATCH.TD24 TD SCH (08:44)
[2016-08-09] MEDS: Heparin 25,000 UNIT/500 ML D5W 25,000 UNIT/500 ML MLS IVC SCH (10:29)
--- NOTE | 2016-08-09 16:02 | Internal Med Progress Note ---
Date of Encounter: 08/09/16 Time of Encounter: 10:00 - Assessment and plan (1) DVT (deep venous thrombosis) Current Visit: Yes Status: Acute Assessment and plan: Patient has acute DVT. There is no clear provoking factors. We will continue heparin drip and start by mouth Coumadin. Patient is at high risk because she is on heparin drip, which need closely monitoring Qualifiers: DVT location: lower extremity Affected thrombotic vein of extremity: unspecified vein of extremity Laterality: right Chronicity: unspecified Qualified Code(s): I82.401 - Acute embolism and thrombosis of unspecified deep veins of right lower extremity (2) DVT prophylaxis Current Visit: Yes Status: Acute Assessment and plan: Patient is on heparin drip and Coumadin (3) CKD (chronic kidney disease) Current Visit: Yes Status: Chronic Assessment and plan: Stable at her baseline Qualifiers: Chronic kidney disease stage: stage 3 (moderate) Qualified Code(s): N18.3 - Chronic kidney disease, stage 3 (moderate) (4) HTN (hypertension) Current Visit: Yes Status: Chronic Assessment and plan: BP is stable. Continue metoprolol and hydralazine. Hold lisinopril because of CKD Qualifiers: Hypertension type: essential hypertension Qualified Code(s): I10 - Essential (primary) hypertension (5) Tobacco use Current Visit: No Status: Chronic Assessment and plan: Patient is on nicotine patch - Time Spent With Patient Greater than 35 minutes - Subjective Interval history: Patient is a 65-year-old female admitted for right leg pain and swelling, diagnosed as acute DVT. Past medical history is significant for hypertension. I have seen and examined the patient today. She said that she has less pain on her right leg. The right leg is still swelling and thicker than the left side. Keep coumadin, continue Bridged with heparin drip, closely follow up PT/INR. Will not place her on lovenox considering her poor renal function. - Constitutional Vitals: Temp Pulse Resp BP Pulse Ox 98.4 F 72 16 129/60 93 L 08/09/16 15:16 08/09/16 15:16 08/09/16 15:16 08/09/16 15:16 08/09/16 15:16 General appearance: Present: cooperative, A&O X 3, no acute distress, obese, answers questions appropriately - Head Head exam: Present: atraumatic, normocephalic - Eye Eye exam: Present: PERRL, conjuntiva pink, sclera anicteric Pupils: Present: PERRL - Neck Neck exam general surgery: Present: supple, trachea midline. Absent: lymphadenopathy - Respiratory Respiratory exam: Present: CTAB. Absent: accessory muscle use, rales, rhonchi, wheezes - Cardiovascular Cardiovascular exam: Present: RRR, +S1, +S2. Absent: diastolic murmur, gallop, rubs, systolic murmur - GI/Abdominal GI/Abdominal exam: Present: normal bowel sounds, soft, no peritoneal signs. Absent: distended, tenderness - Extremities Exam Extremities exam: Present: pedal edema (Edema on right leg), tenderness ( Tenderness on the right leg), warm, radial pulses palpable and symetrical. Absent: calf tenderness, cyanotic - Neurological Exam Neurological exam: Present: CN II-XII intact, oriented X3, no focal deficits. Absent: pronater drift, facial droop, speech deficit - Skin Skin exam: Present: dry, intact Internal Medicine: Result - Labs CBC & Chem 7: 08/09/16 05:52 08/09/16 05:52 Labs: Short CBC 08/09/16 Range/Units 05:52 WBC 7.3 (4.3-11.1) K/mcL Hgb 8.7 L (11.5-15.4) g/dL Hct 28.7 L (35.3-44.9) % Plt Count 233 (140-400) K/mcL Neutrophils # 4.3 (1.6-8.9) K/mcL BMP 08/09/16 05:52 Sodium 138 Potassium 4.4 Chloride 106 Carbon Dioxide 26 BUN 19 Creatinine 1.20 H Glucose 95 Calcium 8.7 - ABG Interpretation ABG results: PT/INR, D-dimer PT 11.1 Seconds (9.4-12.1) 08/09/16 06:01 Consult Discharge Plan - Plan Referrals: Rebecca Gilbert CNP [Primary Care Provider] - 08/16/16 9:30 am
[2016-08-09] MEDS: Loratadine 10 MG TABLET PO SCH (17:04)
[2016-08-09] MEDS: *HR* Warfarin 7.5 MG TABLET PO SCH (17:04)
[2016-08-10 06:11] LABS: INR 1.2; Prothrombin Time 13.4 Seconds (9.4-12.1)
[2016-08-10 06:13] LABS: Activated Partial Thrombo Time 74.7 Seconds (26.0-36.0)
[2016-08-10] MEDS: Gabapentin 100 MG CAPSULE PO SCH ×2 (07:47→20:55)
[2016-08-10] MEDS: Nicotine 14 MG PATCH.TD24 TD SCH (07:47)
[2016-08-10] MEDS: amLODIPine 5 MG TABLET PO SCH (07:47)
[2016-08-10] MEDS: Magnesium Oxide 400 MG TABLET PO SCH (07:47)
[2016-08-10] MEDS: Heparin 25,000 UNIT/500 ML D5W 25,000 UNIT/500 ML MLS IVC SCH (08:03)
--- NOTE | 2016-08-10 15:37 | Internal Med Progress Note ---
Date of Encounter: 08/10/16 Time of Encounter: 09:00 - Assessment and plan (1) DVT (deep venous thrombosis) Current Visit: Yes Status: Acute Assessment and plan: Patient has acute DVT. There is no clear provoking factors. We will continue heparin drip and start by mouth Coumadin. Patient is at high risk because she is on heparin drip, which need closely monitoring Qualifiers: DVT location: lower extremity Affected thrombotic vein of extremity: unspecified vein of extremity Laterality: right Chronicity: unspecified Qualified Code(s): I82.401 - Acute embolism and thrombosis of unspecified deep veins of right lower extremity (2) DVT prophylaxis Current Visit: Yes Status: Acute Assessment and plan: Patient is on heparin drip and Coumadin (3) CKD (chronic kidney disease) Current Visit: Yes Status: Chronic Assessment and plan: Stable at her baseline Qualifiers: Chronic kidney disease stage: stage 3 (moderate) Qualified Code(s): N18.3 - Chronic kidney disease, stage 3 (moderate) (4) HTN (hypertension) Current Visit: Yes Status: Chronic Assessment and plan: BP is stable. Continue metoprolol and hydralazine. Hold lisinopril because of CKD Qualifiers: Hypertension type: essential hypertension Qualified Code(s): I10 - Essential (primary) hypertension (5) Tobacco use Current Visit: No Status: Chronic Assessment and plan: Patient is on nicotine patch - Time Spent With Patient Greater than 35 minutes - Subjective Interval history: Patient is a 65-year-old female admitted for right leg pain and swelling, diagnosed as acute DVT. Past medical history is significant for hypertension. I have seen and examined the patient today. She said that she doesn't feel pain on her right leg. Rt Leg swelling is also improved. Keep coumadin, continue Bridged with heparin drip, closely follow up PT/INR. Will not place her on lovenox considering her poor renal function. - Constitutional Vitals: Temp Pulse Resp BP Pulse Ox 97.4 F L 60 16 143/86 96 08/10/16 12:13 08/10/16 12:13 08/10/16 12:13 08/10/16 12:13 08/10/16 12:13 General appearance: Present: cooperative, A&O X 3, no acute distress, obese, answers questions appropriately - Head Head exam: Present: atraumatic, normocephalic - Eye Eye exam: Present: PERRL, conjuntiva pink, sclera anicteric Pupils: Present: PERRL - Neck Neck exam general surgery: Present: supple, trachea midline. Absent: lymphadenopathy - Respiratory Respiratory exam: Present: CTAB. Absent: accessory muscle use, rales, rhonchi, wheezes - Cardiovascular Cardiovascular exam: Present: RRR, +S1, +S2. Absent: diastolic murmur, gallop, rubs, systolic murmur - GI/Abdominal GI/Abdominal exam: Present: normal bowel sounds, soft, no peritoneal signs. Absent: distended, tenderness - Extremities Exam Extremities exam: Present: tenderness (Mild tenderness on right leg), warm, radial pulses palpable and symetrical. Absent: calf tenderness, cyanotic, pedal edema Additional comments: Right leg swelling, thicker than left side - Neurological Exam Neurological exam: Present: CN II-XII intact, oriented X3, no focal deficits. Absent: pronater drift, facial droop, speech deficit - Skin Skin exam: Present: dry, intact Internal Medicine: Result - Labs CBC & Chem 7: 08/09/16 05:52 08/09/16 05:52 - ABG Interpretation ABG results: PT/INR, D-dimer PT 13.4 Seconds (9.4-12.1) H 08/10/16 05:36 Consult Discharge Plan - Plan Referrals: Rebecca Gilbert CNP [Primary Care Provider] - 08/16/16 9:30 am
[2016-08-10] MEDS: Loratadine 10 MG TABLET PO SCH (16:51)
[2016-08-10] MEDS: *HR* Warfarin 7.5 MG TABLET PO SCH (16:51)
[2016-08-11] MEDS: Heparin 25,000 UNIT/500 ML D5W 25,000 UNIT/500 ML MLS IVC SCH (05:38)
[2016-08-11 06:33] LABS: INR 1.7
[2016-08-11] MEDS: Gabapentin 100 MG CAPSULE PO SCH ×2 (09:13→21:03)
[2016-08-11] MEDS: amLODIPine 5 MG TABLET PO SCH (09:14)
[2016-08-11] MEDS: Nicotine 14 MG PATCH.TD24 TD SCH (09:14)
[2016-08-11] MEDS: Magnesium Oxide 400 MG TABLET PO SCH (09:14)
--- NOTE | 2016-08-11 14:24 | Internal Med Progress Note ---
Date of Encounter: 08/11/16 Time of Encounter: 10:00 - Assessment and plan (1) DVT (deep venous thrombosis) Current Visit: Yes Status: Acute Assessment and plan: Patient has acute DVT. There is no clear provoking factors. We will continue heparin drip and start by mouth Coumadin. On Coumadin day 5, INR 1.7 today Patient is at high risk because she is on heparin drip, which need closely monitoring Qualifiers: DVT location: lower extremity Affected thrombotic vein of extremity: unspecified vein of extremity Laterality: right Chronicity: unspecified Qualified Code(s): I82.401 - Acute embolism and thrombosis of unspecified deep veins of right lower extremity (2) DVT prophylaxis Current Visit: Yes Status: Acute Assessment and plan: Patient is on heparin drip and Coumadin (3) CKD (chronic kidney disease) Current Visit: Yes Status: Chronic Assessment and plan: Stable at her baseline Qualifiers: Chronic kidney disease stage: stage 3 (moderate) Qualified Code(s): N18.3 - Chronic kidney disease, stage 3 (moderate) (4) HTN (hypertension) Current Visit: Yes Status: Chronic Assessment and plan: BP is stable. Continue metoprolol and hydralazine. Hold lisinopril because of CKD Qualifiers: Hypertension type: essential hypertension Qualified Code(s): I10 - Essential (primary) hypertension (5) Tobacco use Current Visit: No Status: Chronic Assessment and plan: Patient is on nicotine patch - Time Spent With Patient Greater than 35 minutes - Subjective Interval history: Patient is a 65-year-old female admitted for right leg pain and swelling, diagnosed as acute DVT. Past medical history is significant for hypertension. I have seen and examined the patient today. She said that she doesn't feel pain on her right leg. Rt Leg swelling is also improved. Keep coumadin, continue Bridged with heparin drip, closely follow up PT/INR. Encourage ambulating. - Constitutional Vitals: Temp Pulse Resp BP Pulse Ox 97.7 F 58 16 148/78 96 08/11/16 11:07 08/11/16 11:07 08/11/16 11:07 08/11/16 11:07 08/11/16 11:07 General appearance: Present: cooperative, A&O X 3, no acute distress, obese, answers questions appropriately - Head Head exam: Present: atraumatic, normocephalic - Eye Eye exam: Present: PERRL, conjuntiva pink, sclera anicteric Pupils: Present: PERRL - Neck Neck exam general surgery: Present: supple, trachea midline. Absent: lymphadenopathy - Respiratory Respiratory exam: Present: CTAB. Absent: accessory muscle use, rales, rhonchi, wheezes - Cardiovascular Cardiovascular exam: Present: RRR, +S1, +S2. Absent: diastolic murmur, gallop, rubs, systolic murmur - GI/Abdominal GI/Abdominal exam: Present: normal bowel sounds, soft, no peritoneal signs. Absent: distended, tenderness - Extremities Exam Extremities exam: Present: tenderness (mild tenderness on her right leg), warm, radial pulses palpable and symetrical. Absent: calf tenderness, cyanotic, pedal edema Additional comments: right leg swelling, thicker than left side - Neurological Exam Neurological exam: Present: CN II-XII intact, oriented X3, no focal deficits. Absent: pronater drift, facial droop, speech deficit - Skin Skin exam: Present: dry, intact Internal Medicine: Result - Labs CBC & Chem 7: 08/09/16 05:52 08/09/16 05:52 - ABG Interpretation ABG results: PT/INR, D-dimer PT 19.0 Seconds (9.4-12.1) H 08/11/16 06:12 Consult Discharge Plan - Plan Referrals: Rebecca Gilbert CNP [Primary Care Provider] - 08/16/16 9:30 am
[2016-08-11] MEDS ORDERED: *HR* Warfarin 3 MG TABLET PO SCH (18:00)
[2016-08-11] MEDS: Loratadine 10 MG TABLET PO SCH (18:25)
[2016-08-12 04:24] LABS: Basophils % 0.7 %; Eosinophils # 0.4 K/mcL (0.0-0.6); Hematocrit 31.4 % (35.3-44.9); Hemoglobin 9.5 g/dL (11.5-15.4); Immature Granulocytes % 0.7 % (0-4); Lymphocytes # 1.6 K/mcL (0.6-4.6); Lymphocytes % 26.6 %; Mean Corpuscular HGB Conc 30.3 g/dL (31.6-35.5); Mean Corpuscular Hemoglobin 24.2 pg (28.0-33.3); Mean Corpuscular Volume 80.1 fL (83.0-100.0); Mean Platelet Volume 9.6 fL (9.4-12.4); Monocytes # 0.6 K/mcL (0.0-1.3); Monocytes % 10.1 %; Neutrophils # 3.4 K/mcL (1.6-8.9); Platelet Count 286 K/mcL (140-400); Red Blood Count 3.92 M/mcL (3.82-4.97); Red Cell Distribution Width 14.2 % (11.5-14.5); Segmented Neutrophils % 55.9 %
[2016-08-12 04:33] LABS: INR 2.1; Prothrombin Time 23.3 Seconds (9.4-12.1)
[2016-08-12 04:36] LABS: Calcium 9.3 mg/dL (8.6-10.8); Potassium 4.3 mEq/L (3.5-4.5)
[2016-08-12 08:00] VITALS: BP 149/79
[2016-08-12] MEDS: amLODIPine 5 MG TABLET PO SCH (08:09)
[2016-08-12] MEDS: Nicotine 14 MG PATCH.TD24 TD SCH (08:09)
[2016-08-12] MEDS: Gabapentin 100 MG CAPSULE PO SCH (08:09)
[2016-08-12] MEDS: Magnesium Oxide 400 MG TABLET PO SCH (08:09)
--- NOTE | 2016-08-12 10:43 | Discharge Summary ---
Date of Encounter: 08/12/16 Time of Encounter: 10:00 - Discharge Diagnosis (1) DVT (deep venous thrombosis) Priority: Primary Status: Acute Qualifiers: DVT location: lower extremity Affected thrombotic vein of extremity: unspecified vein of extremity Laterality: right Chronicity: unspecified Qualified Code(s): I82.401 - Acute embolism and thrombosis of unspecified deep veins of right lower extremity (2) DVT prophylaxis Priority: Secondary Status: Acute (3) CKD (chronic kidney disease) Priority: Secondary Status: Chronic Qualifiers: Chronic kidney disease stage: stage 3 (moderate) Qualified Code(s): N18.3 - Chronic kidney disease, stage 3 (moderate) (4) HTN (hypertension) Priority: Secondary Status: Chronic Qualifiers: Hypertension type: essential hypertension Qualified Code(s): I10 - Essential (primary) hypertension (5) Tobacco use Priority: Secondary Status: Chronic - Discharge Medications Prescriptions: Warfarin [Coumadin] 6 mg PO 1800 #14 tablet Home Medications: Cetirizine HCl [Zyrtec] 10 mg PO QPM 10/31/15 [History] Citalopram [CeleXA] 20 mg PO QAM 10/31/15 [History] Lisinopril [Zestril] 20 mg PO QAM 10/31/15 [History] Magnesium Oxide [Magnesium] 500 mg PO QAM 10/31/15 [History] [place]-3/Dha/Epa/Fish Oil [Fish Oil 1,000 mg Softgel] 1 each PO QPM 10/31/15 [ History] Vitamin E (Dl,Tocopheryl Acet) [Vitamin E] 400 unit PO BID 10/31/15 [History] Amlodipine [Norvasc] 2.5 mg PO QAM 08/06/16 [History] Dexamethasone [Decadron] 4 mg PO DAILY 08/06/16 [History] Gabapentin [Neurontin] 100 mg PO BID 08/06/16 [History] Hydroxyzine HCl 25 mg PO BID PRN 08/06/16 [History] Lisinopril [Zestril] 10 mg PO QPM 08/06/16 [History] Metoprolol Tartrate 25 mg PO BID 08/06/16 [History] Warfarin [Coumadin] 6 mg PO 1800 #14 tablet 08/12/16 [Rx] Allergies/Adverse Reactions: Allergies doxycycline Allergy (Verified 08/06/16 18:53) Itching nystatin [From Mycolog II] Allergy (Verified 08/06/16 18:53) Rash Penicillins Allergy (Verified 08/06/16 18:53) Swelling of Lip/Tongue/Throat Sulfa (Sulfonamide Antibiotics) Allergy (Verified 08/06/16 18:53) See Comments Swelling triamcinolone [From Mycolog II] Allergy (Verified 08/06/16 18:53) Rash - Notes to Outpatient Provider Patient was diagnosed as the right side leg DVT. On Coumadin 6 mg by mouth daily. Please follow up PT INR. Date of admission: 08/07/16 09:20 Primary care physician: Rebecca Gilbert CNP Consults: 08/07/16 14:34 consult to disbursing agent [Consult to Nutrition] [CONS] Routine Comment: Pt start coumadin Consulting Provider: NUTRITION Reason for Dietary Consult: Diet Education Discharging clinician: Mulu Campbell Anticipated date of discharge: 08/12/16 - Patient Status Disposition: Home, Self-Care Condition: Good Overall status at discharge: patient is back to baseline - Discharge Instructions Instructions: Deep Venous Thrombosis (DC), Vitamin K in Foods (DC) Follow Up With: Rebecca Gilbert CNP [Primary Care Provider] - 08/16/16 9:30 am - Diet and Activity Activity: increase activity as tolerated Diet: regular diet Interval History: Ms. Brantley is a 65 year old female that presented to the ED for gradual right leg swelling, that began with right groin pain 6 days ago. PMHx of CKD, uterine/ vaginal cancer, anemia, HTN, and DDD in her back. Patient states the groin pain was severe enough to wake her at approx 3am on 07/31/16. That pain has since subsided, but her right leg has continued to swell and has been painful the past 2 days. Patient states her right leg throbs, has some numbness and tingling at times, and she rates the severity as a 5/10 currently. Patient denies any weakness in the extremity or any color/skin changes. Patient denies any nausea, vomiting, abdominal pain, melena, diarrhea. Hospital course: Ms. Brantley is a 65 year old female admitted as right leg DVT. She was placed on heparin drip, and then started on by mouth Coumadin. After treatment, her leg pain has resolved. Leg swelling has improved. She can walk around without any pain or difficulty. Her INR has get to therapeutic range. We will stop heparin drip, keep her by mouth Coumadin, discharge her home today. She will follow up with PCP as outpatient. I saw and examined the patient today. She had no leg pain. No other complaint. Vital signs stable. With discharge her on Coumadin 6 mg by mouth daily, repeat INR in 5 days. Follow-up with PCP. Time spent discussing smoking cessation with patient: 3 to 10 minutes - Time Spent with Patient Total time spent providing and/or coordinating discharge services: 25 minutes Less than 30 minutes - Constitutional Vitals: Temp Pulse Resp BP Pulse Ox 98 F 64 16 149/79 97 08/12/16 07:59 08/12/16 07:59 08/12/16 07:59 08/12/16 07:59 08/12/16 07:59 General appearance: Present: cooperative, A&O X 3, no acute distress, obese, answers questions appropriately - Head Head exam: Present: atraumatic, normocephalic - Eye Eye exam: Present: PERRL, conjuntiva pink, sclera anicteric Pupils: Present: PERRL - Neck Neck exam general surgery: Present: supple, trachea midline. Absent: lymphadenopathy - Respiratory Respiratory exam: Present: CTAB. Absent: accessory muscle use, rales, rhonchi, wheezes - Cardiovascular Cardiovascular exam: Present: RRR, +S1, +S2. Absent: diastolic murmur, gallop, rubs, systolic murmur - GI/Abdominal GI/Abdominal exam: Present: normal bowel sounds, soft, no peritoneal signs. Absent: distended, tenderness - Extremities Exam Extremities exam: Present: warm, radial pulses palpable and symetrical. Absent : calf tenderness, cyanotic, pedal edema Additional comments: Right leg swelling and is sicker than left. - Neurological Exam Neurological exam: Present: CN II-XII intact, oriented X3, no focal deficits. Absent: pronater drift, facial droop, speech deficit - Skin Skin exam: Present: dry, intact
== END 2016-08-12 12:15 | disposition home or self-care (01) | DRG 301 ==
LOC: EMEROO 13:48 → 3ANU 13:48 → SUATTDRO 18:50 → 3ANU 19:35
PROVIDERS: ADMIT Internal Medicine; ATTEND Internal Medicine

== ENCOUNTER 2016-11-07 11:00 | Inpatient (IN) ==
--- NOTE | 2016-11-07 11:24 | Emergency Department Note ---
Disposition Clinical Impression: Anemia Qualifiers: Anemia type: unspecified type Qualified Code(s): D64.9 - Anemia, unspecified Disposition: Admitted As Inpatient Condition: Fair Time of Disposition: 12:47 Recheck wound or abnormal lab - General Chief Complaint: ED Recheck/Abnormal Lab/Rx Stated Complaint: "Blood Transfusion" Time Seen by Provider: 11/07/16 11:10 Source: patient Mode of arrival: ambulatory Limitations: no limitations Nursing Notes Reviewed: Yes Vital Signs Reviewed: Yes - History of Present Illness HPI Narrative: 65-year-old female history of DVT on Coumadin, hypertension, hyperlipidemia, pack per day smoker presents to the ED with low hemoglobin. Her primary care provider Vladimir FELTON casi labs yesterday due to generalized fatigue, shortness of breath, and generalized weakness that has been ongoing for the past several months. Results come in today and reportedly her hemoglobin was 6.8. She was recently diagnosed with DVTs in the right lower extremity 08/06/2016 and currently being treated with Coumadin. She follows with a Coumadin clinic here , INR normally 2.7 she reports. Reports 1 month ago she noticed an isolated episode of black tarry stool. No bloody stool or black tarry stool since. History of bleeding ulcer 4 years ago where she required blood transfusion. Her systems engineer is Dr. Iyer. She continues to reports fatigue, shortness of breath, and feeling of lightheadedness. Denies any recent falls, head trauma, confusion , chest pain, bloody stool, vaginal bleeding, hemoptysis. - Related Data Home Medications Medication Instructions Recorded Confirmed Cetirizine HCl [Zyrtec] 10 mg PO QPM 10/31/15 11/07/16 Citalopram [CeleXA] 40 mg PO QAM 10/31/15 11/07/16 Lisinopril [Zestril] 20 mg PO QAM 10/31/15 11/07/16 Magnesium Oxide [Magnesium] 500 mg PO QAM 10/31/15 11/07/16 Amlodipine [Norvasc] 2.5 mg PO QAM 08/06/16 11/07/16 Lisinopril [Zestril] 10 mg PO QPM 08/06/16 11/07/16 Metoprolol Tartrate 25 mg PO BID 08/06/16 11/07/16 Warfarin [Coumadin] 6 mg PO QPM 11/07/16 11/07/16 Allergies Allergy/AdvReac Type Severity Reaction Status Date / Time doxycycline Allergy Itching Verified 08/06/16 18:53 nystatin [From Mycolog II] Allergy Rash Verified 08/06/16 18:53 Penicillins Allergy Swelling Verified 08/06/16 18:53 of Lip/Tongue/Throat Sulfa (Sulfonamide Allergy See Verified 08/06/16 18:53 Antibiotics) Comments triamcinolone Allergy Rash Verified 08/06/16 18:53 [From Mycolog II] All systems ED: reviewed and negative except as stated. Constitutional: Denies: fever, chills Cardiovascular: Denies: chest pain Respiratory: Reports: cough, dyspnea Gastrointestinal: Reports: melena. Denies: abdominal pain, nausea, vomiting, diarrhea, hematemesis, hematochezia Genitourinary: Denies: urgency, hematuria, abnormal menses Musculoskeletal: Denies: back pain, neck pain Integumentary: Denies: rash, abrasion Neurological: Denies: headache, weakness Endocrine: Reports: fatigue Past Medical History - Past Medical History Attestation: Yes The following information was validated with the patient. Source: patient Medical history: Reports: GI bleed, hypertension, other Surgical history: Reports: non-contributory Psychiatric history: Reports: no psych history - Social History Smoking Status: Current every day smoker Smokeless Tobacco Status: No Alcohol use: Reports: occasionally Drug use: Reports: none Physical Exam - General Limitations: no limitations General appearance: alert, in no apparent distress - Head Head exam: atraumatic, normocephalic, normal inspection - Eye Eye exam: Present: normal appearance, PERRL, EOMI, other (pale conjunctiva). Absent: scleral icterus - ENT ENT exam: normal exam, normal oropharynx, mucous membranes moist - Neck Neck exam: Present: normal inspection, full ROM, trachea midline - Chest Chest inspection: Present: normal inspection, symmetric chest wall rise. Absent : tenderness - Respiratory Respiratory exam: Present: normal lung sounds bilaterally. Absent: respiratory distress, wheezes - Cardiovascular Cardiovascular exam: Present: regular rate, normal rhythm, normal heart sounds. Absent: systolic murmur, diastolic murmur - Abdominal Exam Abdominal exam: Present: soft, Non-Tender, normal bowel sounds. Absent: tenderness, distention, guarding, rebound, rigidity Abdominal tenderness: Absent: epigastrium - Rectal Exam Air Press Operator present during exam: Yes Rectal exam: Present: normal inspection, normal rectal tone, heme (-) stool, hemorrhoids. Absent: black stool, bloody stool - Extremities Exam Extremities exam: Present: normal inspection, full ROM, normal capillary refill. Absent: tenderness, pedal edema, calf tenderness - Back Exam Back exam: Present: normal inspection, full ROM. Absent: tenderness, CVA tenderness (R), CVA tenderness (L) - Neurological Exam Neurological exam: Present: alert, oriented X3 - Psychiatric Psychiatric exam: Present: normal affect, normal mood - Skin Skin exam: Present: warm, dry, intact, pallor Course Course Narrative: 65-year-old female presents with abnormal low hemoglobin. Reports a history of blood transfusion 4 years ago for ulcer. She is currently been taking Coumadin for recently diagnosed DVT. She appears in no acute distress. Her vital signs are stable. She is not tachycardic. She appears pale but family at bedside do not notice significant pallor. Conjunctiva appears pale. No scleral icterus. Lungs are clear auscultation bilaterally. Heart Sagar or rate and rhythm. Abdomen is soft nontender nondistended. Neurologic exam is normal without any focal neural deficits. No obvious signs of internal bleeding. Rectal exam performed feeling hemorrhoids but no bloody stool. Fecal Hemoccult sent down for analysis. Get basic labs in check or hemoglobin. She will likely need admission if it continues to be low and possible transfusion. Type and screen ordered. Patient is in agreement with plan. - Reevaluation(s) Reevaluation #1: Hemoglobin 6.6. Will start blood transfusion 2 units packed red blood cells. Hemoccult is negative for occult blood. Impression is anemia likely iron deficiency. She reports not being able to tolerate iron pills in the past. EKG is unremarkable without any acute ischemic changes. Time: 12:23 - Consultations Consultation #1: Spoke with on-call hospitalist opal Diaz to admit for acute blood loss anemia. No further orders at this time Time: 12:47 Vital Signs Temperature 98.2 F 11/07/16 11:01 Pulse Rate 69 11/07/16 11:01 Respiratory Rate 20 11/07/16 11:01 Blood Pressure 128/53 11/07/16 11:01 O2 Sat by Pulse Oximetry 99 11/07/16 11:01 Temperature 97.6 F 11/08/16 00:46 Pulse Rate 74 11/08/16 00:46 Respiratory Rate 17 11/08/16 00:46 Blood Pressure 116/58 11/08/16 00:46 O2 Sat by Pulse Oximetry 91 L 11/08/16 00:46 Oxygen Delivery Oxygen Delivery Room Air Recheck wound or abnormal lab - MDM Narrative Medical decision making narrative: I examined this patient and my medical decision-making was reviewed with the AIRPORT CLERK/PA/Advanced Practice Nurse/Resident Physician. I agree with the documented findings, disposition and treatment plan as described except to the extent set forth below. I evaluated this patient with Dr. Bui, I agree with his evaluation and management plan, I supervised the care of the patient that stay. Patient comes in today she had blood work drawn by her primary doctor yesterday and should she was anemic so they called her today and told to come in the hospital as she may need transfusion. She had 1 episode of dark stool she said she had a GI bleed about 4 years ago and got a blood transfusion from that. She has recently been started on Coumadin in August secondary to a DVT and she thinks she is doing well but thought that maybe that was one of the causes for this also. She has no gross blood here she is not vomiting. She has no abdominal pain. Her going to get lab work on her. See if there is no change since yesterday type and screen her she will need admission for blood transfusion. She is in agreement with this plan. 1203 hrs.: Patient's hemoglobin is back as 6.6. She does have an elevated BUN and creatinine but that has been this way in the past. An EKG on her and start transfusion and then we will get her admitted. She is in agreement with this plan. Critical care time excluding any separately billable procedures is 30 minutes. 1240 hrs.: Hospitalist accepted patient. Impression is anemia requiring blood transfusion most likely secondary to GI bleed and hypocoagulable state secondary to Coumadin. Patient's in agreement with this plan. She is started on blood transfusion in the emergency department. - Medical Records Medical records reviewed: Yes I reviewed the patient's medical records. - Lab Data Lab results reviewed: Yes I reviewed the patient's lab results. Result diagrams: 11/07/16 22:17 11/07/16 11:26 Lab Results 11/07/16 11/07/16 11/07/16 Range/Units 11:26 11:26 11:26 WBC 5.1 (4.3-11.1) K/mcL RBC 3.65 L (3.82-4.97) M/mcL Hgb 6.6 L (11.5-15.4) g/dL Hct 25.4 L (35.3-44.9) % MCV 69.6 L (83.0-100.0) fL MCH 18.1 L (28.0-33.3) pg MCHC 26.0 L (31.6-35.5) g/dL RDW 17.3 H (11.5-14.5) % Plt Count 372 (140-400) K/mcL MPV 9.3 L (9.4-12.4) fL Immature Gran % 0.4 (0-4) % Seg Neutrophils % 57.5 % Lymphocytes % 25.8 % Monocytes % 9.6 % Eosinophils % 5.9 % Basophils % 0.8 % Neutrophils # 2.9 (1.6-8.9) K/mcL Lymphocytes # 1.3 (0.6-4.6) K/mcL Monocytes # 0.5 (0.0-1.3) K/mcL Eosinophils # 0.3 (0.0-0.6) K/mcL Basophils # 0.0 (0.0-0.2) K/mcL Platelet Estimate Normal (Normal) Hypochromasia Present A (Not Present) Poikilocytosis 2+ A (Not Present) Anisocytosis 1+ A (Not Present) Microcytosis Present A (Not Present) Helmet Cells Present A (Not Present) PT (9.4-12.1) Seconds INR Sodium 138 (136-145) mEq/L Potassium 4.5 (3.5-4.5) mEq/L Chloride 105 (98-109) mEq/L Carbon Dioxide 21 (19-29) mEq/L BUN 21 H (7-20) mg/dL Creatinine 1.27 H (0.57-1.11) mg/dL Est GFR ( Amer) 52 L (> 60) Est GFR (Non-Af Amer) 43 L (> 60) BUN/Creatinine Ratio 17 (6-26) Glucose 92 (70-99) mg/dL Calculated Osmolality 289 (280-300) Calcium 9.4 (8.6-10.8) mg/dL Stool Occult Blood (Negative) Blood Type A POSITIVE Antibody Screen NEGATIVE Crossmatch See Detail 11/07/16 11/07/16 Range/Units 11:28 12:41 WBC (4.3-11.1) K/mcL RBC (3.82-4.97) M/mcL Hgb (11.5-15.4) g/dL Hct (35.3-44.9) % MCV (83.0-100.0) fL MCH (28.0-33.3) pg MCHC (31.6-35.5) g/dL RDW (11.5-14.5) % Plt Count (140-400) K/mcL MPV (9.4-12.4) fL Immature Gran % (0-4) % Seg Neutrophils % % Lymphocytes % % Monocytes % % Eosinophils % % Basophils % % Neutrophils # (1.6-8.9) K/mcL Lymphocytes # (0.6-4.6) K/mcL Monocytes # (0.0-1.3) K/mcL Eosinophils # (0.0-0.6) K/mcL Basophils # (0.0-0.2) K/mcL Platelet Estimate (Normal) Hypochromasia (Not Present) Poikilocytosis (Not Present) Anisocytosis (Not Present) Microcytosis (Not Present) Helmet Cells (Not Present) PT 30.0 H (9.4-12.1) Seconds INR 2.7 Sodium (136-145) mEq/L Potassium (3.5-4.5) mEq/L Chloride (98-109) mEq/L Carbon Dioxide (19-29) mEq/L BUN (7-20) mg/dL Creatinine (0.57-1.11) mg/dL Est GFR ( Amer) (> 60) Est GFR (Non-Af Amer) (> 60) BUN/Creatinine Ratio (6-26) Glucose (70-99) mg/dL Calculated Osmolality (280-300) Calcium (8.6-10.8) mg/dL Stool Occult Blood Negative (Negative) Blood Type Antibody Screen Crossmatch - EKG Data EKG attestation: Yes I reviewed and interpreted this EKG. EKG results narrative: EKG performed 1205 sinus bradycardia 54 bpm, good R-R wave progression, normal axis, there are no ST elevations or depressions, T-wave inversion in lead III, Q wave in lead III. Intervals are within normal limits [place] interval 156 QRS 93 QT QTC 432 419. Compared to old EKG performed 08/06/2016 shows consistent findings old inferior Q waves and T wave inversion in lead III. No acute ischemic changes.
[2016-11-07 11:33] LABS: Basophils % 0.8 %; Eosinophils # 0.3 K/mcL (0.0-0.6); Eosinophils % 5.9 %; Hematocrit 25.4 % (35.3-44.9); Hemoglobin 6.6 g/dL (11.5-15.4); Immature Granulocytes % 0.4 % (0-4); Lymphocytes # 1.3 K/mcL (0.6-4.6); Lymphocytes % 25.8 %; Mean Corpuscular Hemoglobin 18.1 pg (28.0-33.3); Mean Corpuscular Volume 69.6 fL (83.0-100.0); Mean Platelet Volume 9.3 fL (9.4-12.4); Monocytes # 0.5 K/mcL (0.0-1.3); Monocytes % 9.6 %; Neutrophils # 2.9 K/mcL (1.6-8.9); Platelet Count 372 K/mcL (140-400); Red Blood Count 3.65 M/mcL (3.82-4.97); Red Cell Distribution Width 17.3 % (11.5-14.5); Segmented Neutrophils % 57.5 %
[2016-11-07 11:46] LABS: Calcium 9.4 mg/dL (8.6-10.8); Potassium 4.5 mEq/L (3.5-4.5)
[2016-11-07 11:50] LABS: INR 2.7
[2016-11-07 12:01] LABS: Platelet Estimate Normal (Normal)
[2016-11-07 12:02] LABS: Anisocytosis 1+ (Not Present); Helmet Cells Present (Not Present); Hypochromasia Present (Not Present); Microcytosis Present (Not Present)
[2016-11-07 12:06] LABS: Poikilocytosis 2+ (Not Present)
[2016-11-07] MEDS ORDERED: 0.9 % Sodium Chloride 250 ML ONE (12:28)
[2016-11-07] MEDS ORDERED: Pantoprazole 80 MG in 0.9 % Sodium Chloride 50 ML IVPB ONE ×2 (14:57→15:17)
--- NOTE | 2016-11-07 15:06 | Internal Med History&Physical ---
Date of Encounter: 11/07/16 Time of Encounter: 15:01 Assessment and Plan (1) Acute blood loss anemia Current visit: Yes Status: Acute Hemoglobin 6.6. About 3 g drop from baseline. Suspect G.I. bleed. She had melena a month ago. I will start the patient on Protonix drip. Clear liquid diet. G.I. consultation for EGD and possible colonoscopy. Follow H&H. 2 units of blood transfusion. However she denies any Melena or fresh bleeding rectum or vomiting of fresh blood currently (2) GI bleeding Current visit: Yes Status: Acute Protonix drip. EGD with or without colonoscopy Qualifiers: Qualified Code(s): K92.2 - Gastrointestinal hemorrhage, unspecified (3) DVT of proximal leg (deep vein thrombosis) Current visit: Yes Status: Acute This is concerning she had a proximal DVT extending into the evening vein about 3 months ago. Because patient is not actively bleeding I will not give any fresh frozen plasma or hold Coumadin to further collaboration from oncology and cardiology service. Because this DVT is proximal and unprovoked, the decision is difficult. Discontinuing anticoagulation will put her at higher risk of pulmonary embolism because the DVT was proximal and was probably unprovoked. I therefore think for this patient that it is reasonable to place a caval filter because of expected recurrence of this problem of G.I. bleeding. I will consult cardiology for that. It is still worth another trial of continuing anticoagulant medications especially one that is reversible like Coumadin in case she had further G.I. bleeding. 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 I will therefore consult hematology to see the patient. It sounds from the patient's history that she probably sustain the pulmonary embolism prior to the diagnosis of her DVT. However at this point she is hemodynamically stable she is being anticoagulated for the DVT so I do not think there is reason to pursue further workup. Qualifiers: Qualified Code(s): I82.4Y9 - Acute embolism and thrombosis of unspecified deep veins of unspecified proximal lower extremity (4) Cancer of genital structure Current visit: Yes Status: Acute Hematology oncology consultation for evaluation of any cancer recurrence is a cause of DVT through a hypercoagulable state Internal Medicine - H&P: HPI Chief complaint: anemia on blood work History of present illness: Ms. 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 Patient has originally seen her PCP because of continued generalized weakness, lethargy, profound shortness of breath with minimal exertion, easy fatigqability etc. or INR is 2.7. Although she denies any black stool or fresh Blood in the stool or vomiting or fresh blood, she mentioned that a month ago she had black stools for which she had not sought medical advice. She denies any recent nonsteroidal anti-inflammatory drug use. She is not on any other antiplatelet or anticoagulant medications. Patients will sometimes have a hemoglobin of 6.6 baseline around 9 to 10. She had prior history of bleeding ulcer 4 years ago. It seems that she has not been following up with her oncologist with regards to her genital cancers. She follows only with PCP. She denies any weight loss. Appetite is fair. She mentioned that in June one month prior to the DVT she experienced an episode of severe posterior back pain that would worsen with deep inspiration. Patient continues to smoke about a pack of cigarettes daily and has been doing so for the past 50 years Past Med Surg Social Fam HX - Past Medical History Medical history: DVT, GI bleed, hypertension, other Psychiatric history: no psych history - Past Surgical History Surgical History: hysterectomy - Social History Smoking Status: Current every day smoker Smokeless Tobacco Status: No Alcohol use: occasionally Drug use: none - Family History Father History Unknown: Yes Living Status: Hx Family Cardiac Disorders: Yes (HTN) Hx Family Respiratory Disorders: Yes (COPD) Mother History Unknown: Yes Adopted: No Hx Family Cardiac Disorders: Yes Hx Family Endocrine Disorder: Yes (dm) Internal Medicine - H&P: Meds Cetirizine HCl [Zyrtec] 10 mg PO QPM 10/31/15 [History] Citalopram [CeleXA] 40 mg PO QAM 10/31/15 [History] Lisinopril [Zestril] 20 mg PO QAM 10/31/15 [History] Magnesium Oxide [Magnesium] 500 mg PO QAM 10/31/15 [History] Amlodipine [Norvasc] 2.5 mg PO QAM 08/06/16 [History] Lisinopril [Zestril] 10 mg PO QPM 08/06/16 [History] Metoprolol Tartrate 25 mg PO BID 08/06/16 [History] Warfarin [Coumadin] 6 mg PO QPM 11/07/16 [History] Allergies doxycycline Allergy (Verified 08/06/16 18:53) Itching nystatin [From Mycolog II] Allergy (Verified 08/06/16 18:53) Rash Penicillins Allergy (Verified 08/06/16 18:53) Swelling of Lip/Tongue/Throat Sulfa (Sulfonamide Antibiotics) Allergy (Verified 08/06/16 18:53) See Comments Swelling triamcinolone [From Mycolog II] Allergy (Verified 08/06/16 18:53) Rash All Systems PM: A 10-system review of systems was performed and is negative for pertinent findings except as documented above in the HPI. Review of systems: 10 point review of systems is negative except for HPI. - Constitutional Vitals: Temp Pulse Resp BP Pulse Ox 97.8 F 59 16 114/72 97 11/07/16 14:01 11/07/16 14:01 11/07/16 14:01 11/07/16 14:01 11/07/16 14:01 Exam: Gen.: patient is alert oriented not in distress. Pale Cardiac: Normal S1 S2 no additional sounds or murmurs chest: clear to auscultation abdomen soft nontender nondistended normal bowel sounds lower extremity: lax calf muscles neuro no focal deficit Internal Med - H&P Results - Labs CBC & Chem 7: 11/07/16 11:26 11/07/16 11:26
[2016-11-07] MEDS ORDERED: Pantoprazole 40 MG VIAL IVP ONE (15:24)
[2016-11-07] MEDS ORDERED: 0.9 % Sodium Chloride 250 ML IVC SCH (15:45)
[2016-11-07] MEDS: Pantoprazole 40 MG in 0.9 % Sodium Chloride Mini Bag 100 ML IVC SCH ×2 (16:01→20:31)
--- NOTE | 2016-11-07 19:26 | Electrocardiograph Report ---
[place] [facility] Test Date: 2016-11-07 Pat Name: Jack Brantley Department: 104 Room: 2A38 Gender: F Behavioral Health Care Coordinator: : 1950 Requested By: Piero Villalba Order Number: [id number] Reading MD: Brea Pryor DO Measurements Intervals [place] Rate: 54 P: 50 UT: 156 QRS: 14 QRSD: 93 T: 3 QT: 432 QTc: 419 Interpretive Statements SINUS BRADYCARDIA WARNING: DATA QUALITY MAY AFFECT INTERPRETATION Electronically Signed On 11-07-2016 19:25:20 EDT by Brea Pryor DO
[2016-11-07 22:26] LABS: Hematocrit 27.7 % (35.3-44.9); Hemoglobin 7.8 g/dL (11.5-15.4)
[2016-11-08] MEDS: Pantoprazole 40 MG in 0.9 % Sodium Chloride Mini Bag 100 ML IVC SCH ×3 (01:24→13:20)
[2016-11-08 06:45] LABS: Immature Granulocytes % 0.2 % (0-4); Red Cell Distribution Width 18.2 % (11.5-14.5)
[2016-11-08 06:47] LABS: Basophils # 0.1 K/mcL (0.0-0.2); Basophils % 1.2 %; Eosinophils # 0.3 K/mcL (0.0-0.6); Eosinophils % 6.5 %; Hematocrit 28.3 % (35.3-44.9); Hemoglobin 8.2 g/dL (11.5-15.4); Lymphocytes % 24.2 %; Mean Corpuscular Hemoglobin 20.8 pg (28.0-33.3); Mean Corpuscular Volume 71.8 fL (83.0-100.0); Mean Platelet Volume 9.1 fL (9.4-12.4); Monocytes # 0.4 K/mcL (0.0-1.3); Monocytes % 10.7 %; Neutrophils # 2.4 K/mcL (1.6-8.9); Platelet Count 277 K/mcL (140-400); Red Blood Count 3.94 M/mcL (3.82-4.97); Segmented Neutrophils % 57.2 %
[2016-11-08 07:01] LABS: Calcium 9.1 mg/dL (8.6-10.8); Potassium 4.6 mEq/L (3.5-4.5)
[2016-11-08 08:09] LABS: Anisocytosis 1+ (Not Present); Hypochromasia Present (Not Present); Microcytosis Present (Not Present); Platelet Estimate Normal (Normal); Polychromasia 2+ (Not Present)
--- NOTE | 2016-11-08 09:25 | Cardiology Consult Note ---
Date of Encounter: 11/07/16 Time of Encounter: 11:30 Assessment and Plan (1) Anemia Current Visit: Yes Status: Acute per primary team Qualifiers: Anemia type: iron deficiency Qualified Code(s): D50.0 - Iron deficiency anemia secondary to blood loss (chronic) (2) DVT of proximal leg (deep vein thrombosis) Current Visit: Yes Status: Acute Given history of extensive unprovoked DVT from right iliac to tibial and interruption in anticoagulation secondary to GIB/anemia, IVC filter is an appropriate therapy to reduce risk of large pulmonary embolism with plan for IVC filter retrieval when able. Patient and family aware of 1% risk of perforation, erosion of IVC, bleeding, , dislodgement of IVC filter and embolization to RV resulting in cardiac or pericardial effusion. All questions were answered. Given risk and benefit, patient is agreeable with proceeding with IVC filter deployment. Qualifiers: Laterality: right Chronicity: chronic Qualified Code(s): I82.5Y1 - Chronic embolism and thrombosis of unspecified deep veins of right proximal lower extremity (3) GI bleeding Current Visit: Yes Status: Acute Protonix drip. EGD with or without colonoscopy Qualifiers: Qualified Code(s): K92.2 - Gastrointestinal hemorrhage, unspecified Discussion w patient/family: The assessment and plan as outlined above was discussed with the patient and/or family members who expressed understanding and agreement. All questions were answered. Thank you for involving us in the care of your patient. Please call with any questions. History of Present Illness Consult date: 11/08/16 Consult reason: DVT, GI bleeding, IVC filter Chief complaint: Anemia History of present illness: Ms. Brantley is a 65 year old female with history of unprovoked RLE DVT July 2016 extending from iliac to tibial level. She does not recall any trauma or prolonged immobility. She was started on coumadin but unfortunately developed GIB with anemia and is rehospitalized secondary to ongoing anemia. Coumadin has been discontinued. Past Med Surg Social Fam HX - Past Medical History Medical history: GI bleed, hypertension, other Psychiatric history: no psych history - Past Surgical History Surgical History: non-contributory - Social History Smoking Status: Current every day smoker Smokeless Tobacco Status: No Alcohol use: occasionally Drug use: none - Family History Father History Unknown: Yes Living Status: Hx Family Cardiac Disorders: Yes (HTN) Hx Family Respiratory Disorders: Yes (COPD) Mother History Unknown: Yes Adopted: No Hx Family Cardiac Disorders: Yes Hx Family Endocrine Disorder: Yes (dm) Medications and Allergies Cetirizine HCl [Zyrtec] 10 mg PO QPM 10/31/15 [History] Citalopram [CeleXA] 40 mg PO QAM 10/31/15 [History] Lisinopril [Zestril] 20 mg PO QAM 10/31/15 [History] Magnesium Oxide [Magnesium] 500 mg PO QAM 10/31/15 [History] Amlodipine [Norvasc] 2.5 mg PO QAM 08/06/16 [History] Lisinopril [Zestril] 10 mg PO QPM 08/06/16 [History] Metoprolol Tartrate 25 mg PO BID 08/06/16 [History] Warfarin [Coumadin] 6 mg PO QPM 11/07/16 [History] Allergies doxycycline Allergy (Verified 08/06/16 18:53) Itching nystatin [From Mycolog II] Allergy (Verified 08/06/16 18:53) Rash Penicillins Allergy (Verified 08/06/16 18:53) Swelling of Lip/Tongue/Throat Sulfa (Sulfonamide Antibiotics) Allergy (Verified 08/06/16 18:53) See Comments Swelling triamcinolone [From Mycolog II] Allergy (Verified 08/06/16 18:53) Rash All Systems Review: A 10-system review of systems was performed and is negative for pertinent findings except as documented above in the HPI. - Constitutional Constitutional: no chills, no fever(s) - EENT Eyes: no blurred vision, no loss of vision Nose, mouth and throat: no bleeding gums, no epistaxis - Cardiovascular Cardiovascular: no chest pain at rest, no chest pain with exertion - Respiratory Respiratory: no hemoptysis, no wheezing - Gastrointestinal Gastrointestinal: no coffee ground emesis, no hematemesis - Genitourinary Genitourinary: no dysuria, no hematuria - Musculoskeletal Musculoskeletal: no back pain, no myalgias - Integumentary Integumentary: no erythema, no rash - Neurological Neurological: no abnormal speech, no focal weakness - Psychiatric Psychiatric: no anxiety, no depression - Hematological/Lymphatic Hematologic/Lymphatic: no easy bleeding, no easy bruising Physical Examination Vital Signs, Last 4 Hours Temp Pulse Resp BP Pulse Ox 11/08/16 07:44 98.2 F 60 16 145/75 95 General: Conversant HEENT: Atraumatic Neck: No JVD Cardiac: Reg Rate and Rhythm Lungs: Normal Breath Sounds Neuro: Alert and responsive Abdomen: Soft Skin: No rashes noted on visualized skin Musculoskeletal: No Chest Wall Tenderness Extremities: Normal Pulses Results 11/08/16 06:32 11/08/16 06:32 Lab Results 11/07/16 11/08/16 11/08/16 22:17 06:32 06:32 WBC 4.1 L Hgb 7.8 L 8.2 L Hct 27.7 L 28.3 L Plt Count 277 Sodium 141 Potassium 4.6 H Chloride 108 Carbon Dioxide 25 BUN 17 Creatinine 1.28 H Glucose 89 Calcium 9.1 Magnesium 2.0 Consult Discharge Plan - Plan Referrals: Rebecca [facility] [Primary Care Provider] -
[2016-11-08] MEDS ORDERED: 0.9 % Sodium Chloride 1,000 ML ONE ×2 (10:49→10:53)
[2016-11-08] MEDS ORDERED: Heparin 1,000 UNITS/500 mL NS 500 ML ONE (10:49)
[2016-11-08] MEDS ORDERED: *HR* Heparin 10,000 UNIT/10 ML VIAL ONE (10:49)
[2016-11-08] MEDS ORDERED: *HR* Midazolam HCl 5 MG/5 ML VIAL IVP ONE (11:07)
[2016-11-08] MEDS ORDERED: *HR* FentaNYL (PF) 100 MCG/2 ML VIAL ONE (11:07)
--- NOTE | 2016-11-08 11:29 | Pre-Sedation Evaluation ---
Pre-sedation evaluation - Pre-sedation checklist Date of procedure: 11/08/16 Procedure: IVC Filter Placement Recent Vitals: Last Vital Signs Temp 98.2 F 11/08/16 07:44 Pulse 60 11/08/16 07:44 Resp 16 11/08/16 07:44 BP 145/75 11/08/16 07:44 Pulse Ox 95 11/08/16 07:44 H&P (including ROS) documented in medical record: Yes Previous reaction to sedatives/anesthetics: No Dietary Status: NPO after Midnight ASA Classification *see protocol: CLASS II-Mild systemic disease Plan of Care: Pt appropriate candidate for procedure/moderate/conscious sedation , Risks/benefits of procedure/sedation discussed w/ patient/family
--- NOTE | 2016-11-08 11:47 | Invasive Diagnostic Lab Proc ---
Name: Jack Brantley Date of Study: 11/08/2016 Date: 1950 Ht: 155.0 in Medical Record#: [id number] Age: 65 Wt: 87.2 lb Gender: Female BSA: 1.86 Order #: [id number] BMI: 36.3 Physicians Performing MD: Wesley Talley MD Referring MD: Rebecca Gilbert CNP Referring MD: Staff Name Position Time In Roseann Willett RT Scrub Citlaly Mckeon RN Paper Twister Tender Karli Daniels RN Paper Twister Tender Mario Donovan RN Monitor Citlaly Mckeon RN Paper Twister Tender Karli Daniels RN Paper Twister Tender Indications DVT, Unilateral Procedures Performed IVC FILTER PLACEMENT Pre-Procedure Checklist Informed consent is complete signed and on chart. H\\T\\P is on chart. ID band is on and ID verified with patient. Patient NPO for procedure The procedure was described for the patient and questions were answered. Blood Pressure: 145/75 ECG is on chart. Rhythm: NSR Plan of Care Patient will tolerate the procedure without complications. Adequate level of comfort will be maintained. Hemodynamics will remain stable Patient will recover from procedure without complications. Respiratory function will be maintained. Cardiac rhythm will remain stable. Patient temperature will be maintained. Patient and/or family have verbalized understanding of the procedure. Patient Education Chief Complaint/Reason for Test: IVC filter Developmental Category: Geriatric (65+ years) Learning Barriers: None Education Needs: Procedure Education Method: Verbal Information Taught: IVC filter Educational Evaluation: Able to repeat information Intravenous Access Time IV Size Location DC'd Fluid/Drip Rate Units RN 10:40 20g 1 1/4" Patent On Arrival Lt Antecubital 10:41 20g 1 1/4" Patent On Arrival Rt Antecubital Protonix 20 ml/hr 11:08 20g 1 1/4" Patent On Arrival Lt Hand 0.9NaCl 25 ml/hr Mario Donovan RN Allergies doxycycline Penicillins Sulfa (Sulfonamide Antibiotics) triamcinolone nystatin GRASS MOLD POLLEN Penicillin SULFA (sulfonamide) Vital Signs Time BP Systolic BP Diastolic HR O2 Sats ASA 10:42 AM 145 75 60 95 11:03 AM 11:03 AM 11:00 AM 164 72 111 11:03 AM 152 73 59 100 11:05 AM 155 80 70 100 11:10 AM 148 66 72 100 11:15 AM 139 64 67 95 11:20 AM 132 61 66 95 11:25 AM 138 63 69 95 11:30 AM 146 65 68 96 11:19 AM Procedure Medications Time Medication Dose Units Method Route 11:10 AM Versed 3 mg Intravenous 11:10 AM Fentanyl 50 mcg Intravenous 11:16 AM Lidocaine 2% 19 ml Subcutaneous 11:00 AM Oxygen 2 L/min nasal cannula ASA Classification: CLASS II- Mild systemic disease (i.e. well-controlled diabetes, hypertension, asthma, cigarette smoking) Kole Score Preprocedure Postprocedure Activity 2- Moves 4 extremities sustained head lift Activity 2- Moves 4 extremities sustained head lift Circulation 2- SBP +/= 20 points of pre-anesthetic level Circulation 2- SBP +/= 20 points of pre-anesthetic level Consciousness 2- Awake and alert oriented x 3 Consciousness 2- Awake and alert oriented x 3 O2 Saturation 2- Able to maintain O2 satruation of 92% on room air O2 Saturation 2- Able to maintain O2 satruation of 92% on room air Respiratory 2- Able to deep breathe and cough well Respiratory 2- Able to deep breathe and cough well Total Score 10 Total Score 10 Contrast: Isovue 370- 200ml Contrast Amount: 31 ml Fluoro Dose: 98 mGy Procedure Log Time Note Entered By 10:58 AM Pt arrived to director of cardiac cath lab 2 at 10:58 [facility] 11:00 AM Roseann Willett RT Position: Scrub Time in: 10:59 11:00 AM Citlaly Mckeon RN Position: Paper Twister Tender Time in: 11:00 11:01 AM Karli Daniels RN Position: Paper Twister Tender Time in: 11:00 11:02 AM Hair removed from procedure site in holding area using clippers. Left groin prepped with Chloraprep by Karli Daniels RN, safety strap applied then patient was draped. Skin intact. 11:03 AM Time: 11:03 Is patient comfortable and pain free?: Yes 11:03 AM Time: 11:03LOC: 5 = Fully awake and oriented or at pre-proc level kk 11:04 AM Patient Charges- Cook Celect IVC Filter,Tray Pack and Pulse Oximetry. 11:06 AM Mario Donovan RN Position: Monitor Time in: 11:05 11:06 AM Citlaly Mckeon RN Position: Paper Twister Tender Time in: 11:06 [email or web address] 11:06 AM Karli Daniels RN Position: Paper Twister Tender Time in: 11:06 [email or web address] 11:10 AM 11:10 Versed 3 mg Intravenous Given by Karli Daniels RN [email or web address] 11:10 AM 11:10 Fentanyl 50 mcg Intravenous Given by Karli Daniels RN [email or web address] 11:10 AM Hair removed from procedure site in holding area using clippers. Bilateral groin prepped with Chloraprep by Citlaly Mckeon RN, safety strap applied then patient was draped. Skin intact. [email or web address] 11:11 AM ASA Class CLASS II- Mild systemic disease (i.e. well-controlled diabetes, hypertension, asthma, cigarette smoking) [email or web address] 11:00 AM Sign in performed according to hospital policy. [email or web address] 11:00 AM Procedure start 11:00 [email or web address] 11:14 AM Time out perfomed [email or web address] 11:16 AM 11:16 19 ml Lidocaine 2% to left groin Subcutaneous Given By Wesley Talley MD [email or web address] 11:17 AM Patient Charges- Neurala Celect IVC Filter,Tray Pack and Pulse Oximetry. [email or web address] 11:17 AM Access obtain and IVC Filter sheath inserted Lt Femoral vein. [email or web address] 11:18 AM Time: 11:03 Is patient comfortable and pain free?: Yes kk 11:19 AM Time: 11:03LOC: 4 = Oriented but drowsy [email or web address] 11:19 AM Inferiorvenacavagram performed. kk 11:21 AM IVC Filter inserted into the inferior vena cava kkner 11:23 AM IVC Filter deployed into the inferior vena cava kkner 11:24 AM Inferiorvenacavagram performed. [email or web address] 11:00 AM 11:00 Oxygen at 2 L/min per nasal cannula by Karli Daniels RN kk 11:27 AM sheath pulled by roseann willett RT for 9 minutes, hemostasis achieved [email or web address] 11:27 AM Procedure completed at 11:27 [email or web address] 11:28 AM Sign Out completed: Radiation Dose 98 mGy Fluoro Time: 2 minutes. Isovue 370- 200ml contrast 31 ml given by Wesley Talley MD. Complications: None. Confirmed administered medications:Yes [email or web address] 11:28 AM Isovue 370- 200ml,1 bottle(s) used. kk 11:28 AM Post Blood Pressure: 138/63 : AM Post EKG: NSR 11:29 Post Pulses: Bilateral DP \\T\\ PT 1+. AM Information taught: IVC filter : Education needs: Responsibilities of Patient in Care Learning barriers: None Education methods: Verbal Education evaluation: Able to repeat information Patient pain level 0/10 kk 10:59 AM Vitals capture started with the following parameters, Patient=Adult, Interval=5 min, Initial Vwbycvft=960 mmHg, Deflation Rate=5 mmHg, Cuff placed on Left Arm 11:00 AM Case Start 11:00 AM TP=471 bpm, LGQI=145/72 mmhg, Resp=29 B/min, Comment=ST 11:02 AM NIBP STAT measurement started. 11:03 AM HR=59 bpm, UQVH=065/73 mmhg, OqY8=741 %, Resp=21 B/min, Comment=SB 11:05 AM HR=70 bpm, EPOA=158/80 mmhg, VtC6=107 %, Resp=14 B/min, Comment=SB 11:08 AM PVIStat 11:10 AM HR=72 bpm, BDMU=852/66 mmhg, TlE8=148.0 %, Resp=12 B/min, Comment=SR 11:15 AM HR=67 bpm, QRHO=897/64 mmhg, SpO2=95.0 %, Resp=20 B/min, Comment=sr 11:20 AM HR=66 bpm, IGVF=843/61 mmhg, SpO2=95.0 %, Resp=15 B/min, Comment=SR 11:25 AM HR=69 bpm, XNBN=152/63 mmhg, SpO2=95.0 %, Resp=16 B/min, Comment=SR 11:30 AM HR=68 bpm, NPWM=395/65 mmhg, SpO2=96.0 %, Resp=16 B/min, Comment=SR 11:34 AM Time: 11:19LOC: 4 = Oriented but drowsy AM Time: 11:18 Is patient comfortable and pain free?: Yes [email or web address] 11:36 AM IVC filter Lot Number [id number] [email or web address] 11:37 AM Opsite applied [email or web address] 11:38 AM Site status No bleeding/hematoma - Lt Groin as reported by Roseann Willett RT at 11:37 [email or web address] 11:41 AM Patient out of room 11:41 [email or web address] 11:42 AM Pt taken to 2A Room# 38 [email or web address] Post Procedure Information Blood Pressure: 138/63 mmHg Rhythm: NSR Post procedure instructions given Report Given To: Ladi Site Checks Time Location Status Staff Sheath In? Note 11:37:00 AM Lt Groin Roseann Willett RT Pulses Time Site Pre Procedure Post Procedure Note 11/08/2016 10:41:00 AM Bilateral DP \\T\\ PT 2+ 11/08/2016 10:41:00 AM Bilateral radial 2+ 11:29:00 AM Bilateral DP \\T\\ PT 1+ Updated by Roseann Willett, RT (R) on 11/08/2016 11:42:09 AM electronically signed on 11/08/2016 11:42:31 AM with status of Final
[2016-11-08] MEDS: Iron Sucrose Complex 200 MG in 0.9 % Sodium Chloride 100 ML IVPB SCH (12:00)
--- NOTE | 2016-11-08 12:17 | Invasive Diagnostic Lab ---
Name: Jack Brantley Date of Study: 11/08/2016 Date: 1950 Ht: 155.0 in Medical Record#: [id number] Age: 65 Wt: 87.2 lb Gender: Female BSA: 1.86 Order #: [id number] Fluoro: 98 mGy BMI: 36.3 Performing MD: Wesley Talley MD, FACC Referring MD: Rebecca Gilbert CNP Procedures Performed: IVC FILTER PLACEMENT Venogram Indications: DVT, Unilateral Impressions: The renal veins at the L1-L2 interspace and inferior vena cava was patent. There was no extravasation of contrast and no intraluminal filling defects. Implantation of an IVC filter with no adverse events. Recommendations: Patient will return for a followup visit. History/ Risk Factors: Hypertension Hx of Tobacco Use DVT Technique After obtaining fully informed consent the patient was brought to the catheterization laboratory in the fasting state. The patient was prepped in the usual sterile fashion. Local anesthetic was infused subcutaneously in the left groin. The right femoral vein was punctured under ultrasound guidance. The vein was cannulated with an 18 gauge needle. A wire was advanced through the needle and the needle was exchanged for the filter sheath. The sheath was placed in the left Femoral vein. An inferior venacavogram was then performed. The filter sheath was then advenced to the L2-L3 interspace and the filter was deployed. A completion cavogram was then performed which revealed no extravasation of contrast, adequate infrarenal placement of the filter and no intraluminal filling defects. The sheath was removed. Manual pressure was applied to aid in hemostasis. The patient was then taken to the recovery room in stable condition. Total Contrast: Isovue 370- 200ml 31mls . Updated by Wesley Talley MD, FACC on 11/08/2016 12:12:13 PM electronically signed on 11/08/2016 12:13:45 PM with status of Final
--- NOTE | 2016-11-08 13:49 | Internal Med Progress Note ---
Date of Encounter: 11/07/16 Time of Encounter: 13:47 - Assessment and plan (1) GI bleeding Current Visit: Yes Status: Acute Assessment and plan: reports benjamin 1 month ago but significant drop in h/h stool occult is negative at this time coumadin has been held, GI has been consulted for possible EGD. will continue the protonix drip s/p 2 unit of BT, H/H 8.2 now. will monitor cbc and transfuse as needed. Qualifiers: GI bleed type/associated pathology: unspecified gastrointestinal hemorrhage type Qualified Code(s): K92.2 - Gastrointestinal hemorrhage, unspecified (2) CKD (chronic kidney disease) Current Visit: No Status: Acute Assessment and plan: creatinine at baselline, will continue to monitor Qualifiers: Chronic kidney disease stage: stage 3 (moderate) Qualified Code(s): N18.3 - Chronic kidney disease, stage 3 (moderate) (3) DVT (deep venous thrombosis) Current Visit: No Status: Acute Assessment and plan: recent DVT 3 months ago, given proximal site and unprovoked, high risk fro PE. as AC had to be held given significant drop in h/h, at least until EGD to r/o active bleed, green field filter has been placed. denies pain or swelling at this time. Qualifiers: DVT location: lower extremity Affected thrombotic vein of extremity: unspecified vein of extremity Laterality: right Chronicity: unspecified Qualified Code(s): I82.401 - Acute embolism and thrombosis of unspecified deep veins of right lower extremity (4) Anemia Current Visit: No Status: Chronic Assessment and plan: microcytic anemia. possible 2/2 chronic blood loss and iron def iron with tsat is low, will start on IV ferrous sulfate for now. transfuse as needed Qualifiers: Iron deficiency anemia type: chronic blood loss Qualified Code(s): D50.0 - Iron deficiency anemia secondary to blood loss (chronic) - Time Spent With Patient 25 - 35 minutes - Subjective Interval history: seen at the bedside,admitted for GIB, recent DVT started on coumadin cardio and GI has been consulted. s/p IVC filter, coumadin has been held. - Constitutional Vitals: Temp Pulse Resp BP Pulse Ox 98.2 F 60 16 145/75 95 11/08/16 07:44 11/08/16 07:44 11/08/16 07:44 11/08/16 07:44 11/08/16 07:44 General appearance: Present: A&O X 3, no acute distress Exam: HEENT: Atraumatic Neck: No JVD Cardiac: Reg Rate and Rhythm Lungs: Normal Breath Sounds Neuro: Alert and responsive Abdomen: Soft, non tender , bs are present Skin: No rashes noted on visualized skin Musculoskeletal: No Chest Wall Tenderness Extremities: Normal Pulses Internal Medicine: Result - Labs CBC & Chem 7: 11/08/16 06:32 11/08/16 06:32 Labs: Short CBC 11/07/16 11/08/16 Range/Units 22:17 06:32 WBC 4.1 L (4.3-11.1) K/mcL Hgb 7.8 L 8.2 L (11.5-15.4) g/dL Hct 27.7 L 28.3 L (35.3-44.9) % Plt Count 277 (140-400) K/mcL Neutrophils # 2.4 (1.6-8.9) K/mcL BMP 11/08/16 06:32 Sodium 141 Potassium 4.6 H Chloride 108 Carbon Dioxide 25 BUN 17 Creatinine 1.28 H Glucose 89 Calcium 9.1 - ABG Interpretation ABG results: PT/INR, D-dimer PT 30.0 Seconds (9.4-12.1) H 11/07/16 11:28 Consult Discharge Plan - Plan Referrals: Rebecca Gilbert, [employer] [Primary Care Provider] -
[2016-11-08] MEDS ORDERED: *HR* Phytonadione 10 MG/ML AMPUL SQ ONE (17:03)
--- NOTE | 2016-11-08 18:54 | Oncology Inp Consult Note ---
<Peter Donovan Jr - Last Filed: 11/08/16 18:48> Date of Encounter: 11/07/16 Time of Encounter: 18:00 Assessment and Plan (1) DVT (deep venous thrombosis) Status: Acute Assessment and plan: The patient is a very pleasant 65-year-old female admitted for anemia of acute loss, suspected gastrointestinal in origin, currently on blood thinner Coumadin for recently diagnosed right lower extremity DVT 3 months ago. She noticed increasing shortness of breath on exertion and chest pain on exertion. She had one bout of melena several weeks ago, but this had resolved. She denied any nausea or vomiting, or hematochezia. Denies gastric ulcer history or previous GI bleeding. Patient has no previous blood clot or anticoagulation history prior to recent DVT event. Her INR level is being managed by [facility]. Her last INR was 2.8 about 3 weeks ago prior to hospitalization. Hemoglobin is 6.6 on admission, was given transfusions. He is scheduled for EGD with Dr. Arellano tomorrow. She refused colonoscopy at the same time, not wanting to go through bowel prep, due to placement of IVC filter today. Hematology was consulted for anticoagulation recommendations. I discussed the case with Dr. Olivarez, as he is web content specialist for hematology. He is familiar with the patient, she was seen by him about 4 years ago for previous hematology issue. He is reviewing the patient's current condition and will see the patient tomorrow morning and provide final recommendations and thoughts for any continued anticoagulation. The patient understands our role in her care. Qualifiers: DVT location: lower extremity Affected thrombotic vein of extremity: unspecified vein of extremity Laterality: right Chronicity: unspecified Qualified Code(s): I82.401 - Acute embolism and thrombosis of unspecified deep veins of right lower extremity (2) Anemia Status: Chronic Qualifiers: Iron deficiency anemia type: chronic blood loss Qualified Code(s): D50.0 - Iron deficiency anemia secondary to blood loss (chronic) - Data of Consult Patient: known to practice within the last 3 years Consult date: 11/08/16 Requesting Physician: Melissa Jones Primary Care Provider: Rebecca Gilbert CNP - Consult Narrative Reason for consult: GI bleed on coumadin for DVT History of present illness: Ms. Brantley is a 65 year old female known to [facility] nearly 4 years ago for referral to Dr Lorenzo Olivarez for hematology issue. Patient recently diagnosed with DVT of right lower extremity after 2105. She was placed on coumadin managed by [facility]. Last INR 2.8 about 3 weeks ago. Patient developed worsening shortness of breath on exertion and generalized weakness over several days. A few weeks ago, she had one episode of melena that she had noticed after a bowel movement, but that had resolved. She sought treatment at ER, and was found to have Hgb of 6.6 and suspected gastrointestinal bleed. She was admitted on 11/07/2016. She was given blood transfusions, and received cardiology consult from Dr. Tallye. Patient had IVC filter placed, since her blood was still thin, and due to severity of blood loss, it became apparent that she may not be returned to a blood thinner. EGD is planned with on 11/09/16. Patient has no previous history of deep vein thrombosis or anticoagulation prior to her new right lower extremity DVT 3 months ago. Hematology was consulted for anticoagulation recommendations in the setting of newly placed IVC filter and gastrointestinal bleed Past Med Surg Social Fam HX - Past Medical History Medical history: DVT, GI bleed, hypertension, other Psychiatric history: no psych history - Past Surgical History Surgical History: non-contributory - Social History Smoking Status: Current every day smoker Smokeless Tobacco Status: No Alcohol use: occasionally Drug use: none - Family History Father History Unknown: Yes Living Status: Hx Family Cardiac Disorders: Yes (HTN) Hx Family Respiratory Disorders: Yes (COPD) Mother History Unknown: Yes Adopted: No Hx Family Cardiac Disorders: Yes Hx Family Endocrine Disorder: Yes (dm) Medications and Allergies Cetirizine HCl [Zyrtec] 10 mg PO QPM 10/31/15 [History] Citalopram [CeleXA] 40 mg PO QAM 10/31/15 [History] Lisinopril [Zestril] 20 mg PO QAM 10/31/15 [History] Magnesium Oxide [Magnesium] 500 mg PO QAM 10/31/15 [History] Amlodipine [Norvasc] 2.5 mg PO QAM 08/06/16 [History] Lisinopril [Zestril] 10 mg PO QPM 08/06/16 [History] Metoprolol Tartrate 25 mg PO BID 08/06/16 [History] Warfarin [Coumadin] 6 mg PO QPM 11/07/16 [History] Allergies doxycycline Allergy (Verified 08/06/16 18:53) Itching nystatin [From Mycolog II] Allergy (Verified 08/06/16 18:53) Rash Penicillins Allergy (Verified 08/06/16 18:53) Swelling of Lip/Tongue/Throat Sulfa (Sulfonamide Antibiotics) Allergy (Verified 08/06/16 18:53) See Comments Swelling triamcinolone [From Mycolog II] Allergy (Verified 08/06/16 18:53) Rash Constitutional: Present: fatigue, malaise Cardiovascular: Present: chest pain with activity Oncology - Exam - Constitutional Vitals: Temp Pulse Resp BP Pulse Ox 97.9 F 80 18 140/82 90 L 11/08/16 14:45 11/08/16 15:56 11/08/16 14:45 11/08/16 15:56 11/08/16 14:45 General appearance: cooperative, no acute distress - Head Head exam: Present: atraumatic, normal inspection - Eye Eye exam: Present: normal appearance, PERRL - ENT ENT exam: Present: mucous membranes moist - Neck Neck exam: Present: full ROM, normal inspection - Respiratory Respiratory exam: Present: CTAB - Cardiovascular Cardiovascular exam: Present: RRR, +S1, +S2 - GI/Abdominal GI/Abdominal exam: Present: normal bowel sounds, soft - Extremities Exam Extremities exam: Present: full ROM, normal inspection - Neurological Exam Neurological exam: Present: alert, CN II-XII intact, oriented X3, no focal deficits - Psychiatric Psychiatric exam: Present: normal affect, normal mood - Skin Skin exam: Present: dry, intact, warm Oncology - Results - Labs Labs: Short CBC 11/07/16 11/08/16 Range/Units 22:17 06:32 WBC 4.1 L (4.3-11.1) K/mcL Hgb 7.8 L 8.2 L (11.5-15.4) g/dL Hct 27.7 L 28.3 L (35.3-44.9) % Plt Count 277 (140-400) K/mcL Neutrophils # 2.4 (1.6-8.9) K/mcL BMP 11/08/16 06:32 Sodium 141 Potassium 4.6 H Chloride 108 Carbon Dioxide 25 BUN 17 Creatinine 1.28 H Glucose 89 Calcium 9.1 Consult Discharge Plan - Plan Referrals: Rebecca Gilbert CNP [Primary Care Provider] - <Lorenzo Olivarez - Last Filed: 11/09/16 08:34> Date of Encounter: 11/07/16 - Data of Consult Requesting Physician: Melissa Jones Primary Care Provider: Rebecca Gilbert CNP - Consult Narrative History of present illness: Ms. Brantley is a 65 year old female Oncology - Exam - Constitutional Vitals: Temp Pulse Resp BP Pulse Ox 97.5 F L 67 17 114/71 89 L 11/09/16 03:45 11/09/16 03:45 11/09/16 02:26 11/09/16 03:45 11/09/16 03:45 Oncology - Results - Labs Labs: Short CBC 11/08/16 11/09/16 Range/Units 06:32 04:47 WBC 4.1 L 4.7 (4.3-11.1) K/mcL Hgb 8.2 L 8.1 L (11.5-15.4) g/dL Hct 28.3 L 28.8 L (35.3-44.9) % Plt Count 277 298 (140-400) K/mcL Neutrophils # 2.4 (1.6-8.9) K/mcL BMP 11/08/16 06:32 Sodium 141 Potassium 4.6 H Chloride 108 Carbon Dioxide 25 BUN 17 Creatinine 1.28 H Glucose 89 Calcium 9.1 - Attending Attestation I saw and personally examined Ms. Brantley at bedside today and reviewed the chart for details of ongoing care by hospital team. I verified/agree with the history and physical exam findings documented by Niall Donovan CNP above. I personally reviewed and interpreted the data and imaging studies pertaining to this encounter as appropriate. To summarize, the patient is known to hematology from previous evaluation of unexplained iron deficiency anemia for which we evaluated her in 2012. She has been lost to follow-up since we last saw 07/06/13. She also had a pulmonary nodule characterizes a 2.3 cm left lower lobe abnormality for which radiographic surveillance was recommended but she has been lost to follow-up subsequently. On reviewing my records, I do not see any subsequent lung imaging. More recently, she was diagnosed with what appears to be an unprovoked DVT ( July and was started on anticoagulation with Coumadin. She is currently hospitalized for acute blood loss anemia presumably related to GI bleed. As she is unable to continue anticoagulation in the setting of suspected ongoing bleeding, she has had a retrievable IVC filter placed by Dr. Talley appropriately. She is also being evaluated by Dr. Arellano for possible bleeding and will be having an EGD later today. Otherwise, she is doing quite well and is in good spirits. She is maintaining a stable hemoglobin/hematocrit after transfusion 2 units PRBCs. For her right lower extremity DVT, there is suspicion of underlying hypercoagulable state and I informed her that I'll call malignancy can be the basis of hypercoagulable state. She will need workup for that but can be completed as an outpatient unless prolonged hospitalization is anticipated. I informed her that unless there is an enduring contraindication to anticoagulation, we will like to get her back on anticoagulation as soon as safely feasible and refer her to Dr. Talley for filter retrieval. For her anemia, workup shows evidence of iron deficiency likely due to blood loss and she has been started on a course of iron infusions appropriately. Rest of anemia work-up unremarkable. We'll follow along with you while in-house and arrange out patient follow up upon discharge.
[2016-11-08] MEDS ORDERED: Acetaminophen 325 MG TABLET PO PRN (20:07)
[2016-11-09] MEDS ORDERED: 0.9 % Sodium Chloride 250 ML ONE (00:04)
[2016-11-09] MEDS: Pantoprazole 40 MG in 0.9 % Sodium Chloride Mini Bag 100 ML IVC SCH (04:04)
[2016-11-09 05:26] LABS: Immature Granulocytes % 0.4 % (0-4)
[2016-11-09 05:28] LABS: Basophils # 0.1 K/mcL (0.0-0.2); Basophils % 1.1 %; Eosinophils # 0.2 K/mcL (0.0-0.6); Eosinophils % 4.5 %; Hematocrit 28.8 % (35.3-44.9); Hemoglobin 8.1 g/dL (11.5-15.4); Lymphocytes # 0.9 K/mcL (0.6-4.6); Lymphocytes % 19.3 %; Mean Corpuscular HGB Conc 28.1 g/dL (31.6-35.5); Mean Corpuscular Hemoglobin 20.3 pg (28.0-33.3); Monocytes # 0.4 K/mcL (0.0-1.3); Monocytes % 8.9 %; Neutrophils # 3.1 K/mcL (1.6-8.9); Platelet Count 298 K/mcL (140-400); Red Cell Distribution Width 18.9 % (11.5-14.5); Segmented Neutrophils % 65.8 %
[2016-11-09 05:34] LABS: INR 1.6; Prothrombin Time 17.6 Seconds (9.4-12.1)
[2016-11-09 05:51] LABS: Anisocytosis 1+ (Not Present); Hypochromasia Present (Not Present); Microcytosis Present (Not Present); Platelet Estimate Normal (Normal)
[2016-11-09 05:52] LABS: Polychromasia 1+ (Not Present)
[2016-11-09] MEDS: Iron Sucrose Complex 200 MG in 0.9 % Sodium Chloride 100 ML IVPB SCH (08:58)
[2016-11-09] MEDS: Pantoprazole 40 MG VIAL IVP SCH ×2 (08:58→21:45)
--- NOTE | 2016-11-09 10:27 | Anesthesia Evaluation PreOp ---
Date of Encounter: 11/07/16 Time of Encounter: 10:25 - Past History Planned Operation: EGD Cardiac History: HTN, Hyperlipidemia, Other (Anemia from GI Bleed, transfused 2 units PRBC 3-30 and iron theraphy) Pulmonary History: Denies Any Significant HX [employer]CH[employer] History: Denies Any Significant HX Other Medical History: Renal (CKD) Anesthesia History: No Prior Anesthetic Complications : No Alcohol Use: occasionally Drug use: none Medications and Allergies Cetirizine HCl [Zyrtec] 10 mg PO QPM 10/31/15 [History] Citalopram [CeleXA] 40 mg PO QAM 10/31/15 [History] Lisinopril [Zestril] 20 mg PO QAM 10/31/15 [History] Magnesium Oxide [Magnesium] 500 mg PO QAM 10/31/15 [History] Amlodipine [Norvasc] 2.5 mg PO QAM 08/06/16 [History] Lisinopril [Zestril] 10 mg PO QPM 08/06/16 [History] Metoprolol Tartrate 25 mg PO BID 08/06/16 [History] Warfarin [Coumadin] 6 mg PO QPM 11/07/16 [History] Allergies doxycycline Allergy (Verified 08/06/16 18:53) Itching nystatin [From Mycolog II] Allergy (Verified 08/06/16 18:53) Rash Penicillins Allergy (Verified 08/06/16 18:53) Swelling of Lip/Tongue/Throat Sulfa (Sulfonamide Antibiotics) Allergy (Verified 08/06/16 18:53) See Comments Swelling triamcinolone [From Mycolog II] Allergy (Verified 08/06/16 18:53) Rash - Meds/Allergy Pre-op Review Medications Reviewed: Yes Allergies Reviewed: Yes Beta Blockers on Current Med List: No Anesthesia Results - Labs 11/09/16 04:47 11/08/16 06:32 - Imaging EKG: report reviewed (SB) Anesthesia Exam O2 Sat Weight 88.9 kg O2 Sat by Pulse Oximetry 91 O2 Sat by Pulse Oximetry 89 O2 Sat by Pulse Oximetry 94 O2 Sat by Pulse Oximetry 93 O2 Sat by Pulse Oximetry 96 O2 Sat by Pulse Oximetry 88 O2 Sat by Pulse Oximetry 89 O2 Sat by Pulse Oximetry 92 O2 Sat by Pulse Oximetry 90 O2 Sat by Pulse Oximetry 90 O2 Sat by Pulse Oximetry 90 O2 Sat by Pulse Oximetry 90 O2 Sat by Pulse Oximetry 92 O2 Sat by Pulse Oximetry 90 O2 Sat by Pulse Oximetry 90 O2 Sat by Pulse Oximetry 90 O2 Sat by Pulse Oximetry 92 O2 Sat by Pulse Oximetry 90 Vital Signs Temp Pulse Resp BP Pulse Ox 98.2 F 69 20 128/53 99 11/07/16 11:01 11/07/16 11:01 11/07/16 11:01 11/07/16 11:01 11/07/16 11:01 Height: 5'1 Weight: 195 lbs NPO (# of Hours): MN Pain Scale: 0 - HEENT Pupil (Motor): Pupils equal, EOMI Mallampati: III Oral Opening: Less than or equal to 3 - [employer] LOC: Oriented [employer] Motor: Normal RUE, Normal LUE, Normal RLE, Normal LLE, Normal Face [employer] Sensory: Normal: RUE, LUE, RLE, LLE, Face - Cardiac Rhythm: Regular Murmur: None JVD: No Carotid Bruit: No - Pulmonary Breath Sounds: bilateral Clear Respiratory Effort: Symmetrical Anesthesia Assess/Plan ASA Score: 4 (Severe Anemia, DVT, CKD, HTBN) Modified Kenna Scale for Level of Consciousness: Cooperative, oriented, and tranquil Anesthetic Plan: MAC Monitoring Plan: Standard Monitors Recovery Plan: Other (Discussed MAC, agrees to proceed)
--- NOTE | 2016-11-09 10:48 | Anesthesia Evaluation Post Op ---
Date of Encounter: 11/07/16 Time of Encounter: 10:48 - Vital Signs Vital Signs: vss - Lungs Lungs: Clear Ascult./Percussion - Airway Airway: Obstructed - Cardiovascular Baseline Rhythm - Mental Status Mental Status: Asleep with brisk response to light stimulation - Pain Pain Scale used: Sergey (Faces) - Nausea Vomiting Nausea Vomiting: Not Present - Discharge PostOp Status: Transfer Patient to floor
[2016-11-09] MEDS ORDERED: Tetracaine/Benzocaine/Butamben 200MG/SPRAY (100SPY/BOT) MM ONE (10:59)
--- NOTE | 2016-11-09 11:27 | Gastroenterology Consult Note ---
<Kimo Grossman - Last Filed: 11/09/16 11:25> Date of Encounter: 11/07/16 Time of Encounter: 10:00 - Assessment and plan (1) Anemia Current Visit: No Status: Chronic Assessment and plan: Hgb 6.6 on admission and after 2 PRBC Hgb is 8.1 today. Continue to monitor CBC and transfuse PRBC as needed. Plan for EGD today to r/o esophagitis, gastritis, duodenitis, PUD, MW tear, or AVM. Qualifiers: Iron deficiency anemia type: chronic blood loss Qualified Code(s): D50.0 - Iron deficiency anemia secondary to blood loss (chronic) (2) Chronic anticoagulation Current Visit: Yes Status: Acute Assessment and plan: On Coumadin. (3) History of DVT (deep vein thrombosis) Current Visit: Yes Status: Acute - Time Spent With Patient Total time spent is greater than 50% in coordination of care (as documented) at patient's floor/unit and/or counseling patient: GI History of Present Illness - Data of Consult Patient: new to practice Consult date: 11/09/16 Requesting Physician: Melissa Jones - Consult Narrative Reason for consult: Anemia History of present illness: Ms. Brantley is a 65 year old female with PMHx of DVT Jul 2016-on Coumadin, uterine cancer 30 years ago s/p hysterectomy, vaginal cancer 20 years ago s/p chemotherapy who presented to the ED with Hgb of 6.6, SOB, weakness. She was started on Coumadin recently for her DVT. She reports one episode of melena about 1 month ago, but denies any since that time. She denies hematochezia or hematemesis. On admisison her Hgb was 6.6 and has received 2 units PRBC and 2 FFP. Hgb today is 8.1. Procedures: Colonoscopy 10/21/2012 Dr. Arellano sigmoid colon was tortuous and fixed , internal hemorrhoids EGD 10/20/2012 Dr Arellano normal esophagus, hiatus hernia, gastritis NSAIDs: None Anticoagulation: Coumadin Past Med Surg Social Fam HX - Past Medical History Medical history: DVT, GI bleed, hypertension, other Psychiatric history: no psych history - Past Surgical History Surgical History: non-contributory - Social History Smoking Status: Current every day smoker Smokeless Tobacco Status: No Alcohol use: occasionally Drug use: none - Family History Father History Unknown: Yes Living Status: Hx Family Cardiac Disorders: Yes (HTN) Hx Family Respiratory Disorders: Yes (COPD) Mother History Unknown: Yes Adopted: No Hx Family Cardiac Disorders: Yes Hx Family Endocrine Disorder: Yes (dm) - Gastrointestinal Gastrointestinal: Present: as per HPI - Constitutional Constitutional: as per HPI - EENT Eyes: as per HPI Ears: Present: as per HPI Nose, mouth and throat: Present: as per HPI - Cardiovascular Cardiovascular ROS: Present: as per HPI - Respiratory Respiratory IM: Present: as per HPI - Genitourinary Genitourinary: Absent: change in color, Urinary frequency - Neurological ROS Neurological GI: Present: as per HPI - Hematologic/Lymphatic Hematologic/Lymphatic pediatric: Present: as per HPI - Musculoskeletal Musculoskeletal ROS GI: Present: as per HPI - Integumentary Integumentary GI: Present: as per HPI - Psychiatric ROS Psychiatric GI: Present: as per HPI - Endocrine Endocrine IM: Present: as per HPI - Constitutional Vitals: Temp Pulse Resp BP Pulse Ox 97.5 F L 59 16 128/55 91 L 11/09/16 10:24 11/09/16 10:24 11/09/16 10:24 11/09/16 10:24 11/09/16 07:40 General appearance: Present: cooperative, A&O X 3, no acute distress, answers questions appropriately - Head Head exam: Present: atraumatic, normocephalic - Eye Eye exam: Present: normal appearance, sclera anicteric - ENT ENT exam: Present: mucous membranes dry - Neck Neck exam general surgery: Present: normal inspection, trachea midline - Respiratory Respiratory exam: Present: CTAB. Absent: rales, rhonchi - Cardiovascular Cardiovascular exam: Present: RRR, +S1, +S2 - GI/Abdominal GI/Abdominal exam: Present: soft, no peritoneal signs. Absent: distended, firm , guarding, tenderness - Rectal Rectal exam: Present: deferred - Extremities Exam Extremities exam: Present: warm - Neurological Exam Neurological exam: Present: no focal deficits - Psychiatric Psychiatric exam: Present: normal affect, normal mood - Skin Skin exam: Present: dry, intact, normal color, warm Results - Labs CBC & Chem 7: 11/09/16 04:47 11/08/16 06:32 Labs: Last Result Calcium 9.1 mg/dL (8.6-10.8) 11/08/16 06:32 Iron 14 mcg/dL (50-170) L 11/08/16 06:32 % Saturation 3 % (15-50) L 11/08/16 06:32 Transferrin 348 mg/dL (180-382) 11/08/16 06:32 Ferritin 7 ng/ml (5-204) 11/08/16 06:32 Stool Occult Blood Negative (Negative) 11/07/16 12:41 Entire Visit Hgb 8.1 g/dL (11.5-15.4) L 11/09/16 04:47 Hct 28.8 % (35.3-44.9) L 11/09/16 04:47 PT 17.6 Seconds (9.4-12.1) H 11/09/16 04:47 Ferritin 7 ng/ml (5-204) 11/08/16 06:32 - ABG ABG results: PT/INR, D-dimer PT 17.6 Seconds (9.4-12.1) H 11/09/16 04:47 Consult Discharge Plan - Plan Referrals: Rebecca Gilbert, [employer] SET DESIGNER [Primary Care Provider] - (staff called this office all morning, nobody supervisor picking crew the phone... called back afternoon and office is close) <Shamir Arellano - Last Filed: 11/09/16 12:59> Date of Encounter: 11/07/16 Time of Encounter: 10:00 - Time Spent With Patient Total time spent is greater than 50% in coordination of care (as documented) at patient's floor/unit and/or counseling patient: GI History of Present Illness - Data of Consult Requesting Physician: Melissa Jones - Consult Narrative History of present illness: Ms. Brantley is a 65 year old female - Constitutional Vitals: Temp Pulse Resp BP Pulse Ox 97.5 F L 65 18 153/85 93 11/09/16 11:39 11/09/16 12:50 11/09/16 12:50 11/09/16 12:50 11/09/16 12:50 Results - Labs CBC & Chem 7: 11/09/16 04:47 11/08/16 06:32 Labs: Last Result Calcium 9.1 mg/dL (8.6-10.8) 11/08/16 06:32 Iron 14 mcg/dL (50-170) L 11/08/16 06:32 % Saturation 3 % (15-50) L 11/08/16 06:32 Transferrin 348 mg/dL (180-382) 11/08/16 06:32 Ferritin 7 ng/ml (5-204) 11/08/16 06:32 Stool Occult Blood Negative (Negative) 11/07/16 12:41 Entire Visit Hgb 8.1 g/dL (11.5-15.4) L 11/09/16 04:47 Hct 28.8 % (35.3-44.9) L 11/09/16 04:47 PT 17.6 Seconds (9.4-12.1) H 11/09/16 04:47 Ferritin 7 ng/ml (5-204) 11/08/16 06:32 - ABG ABG results: PT/INR, D-dimer PT 17.6 Seconds (9.4-12.1) H 11/09/16 04:47
--- NOTE | 2016-11-09 14:37 | Internal Med Progress Note ---
Date of Encounter: 11/07/16 Time of Encounter: 14:34 - Assessment and plan (1) GI bleeding Current Visit: Yes Status: Acute Assessment and plan: reports benjamin 1 month ago but significant drop in h/h stool occult is negative at this time coumadin has been held, s/p EGD that shows erosion and gastritis. no active bleeding. s/p 2 unit of BT, H/H 8.1 now. will monitor cbc and transfuse as needed. conitnue PPI daily and carafate as per GI recommendation Qualifiers: GI bleed type/associated pathology: unspecified gastrointestinal hemorrhage type Qualified Code(s): K92.2 - Gastrointestinal hemorrhage, unspecified (2) CKD (chronic kidney disease) Current Visit: No Status: Acute Assessment and plan: creatinine at baselline, will continue to monitor Qualifiers: Chronic kidney disease stage: stage 3 (moderate) Qualified Code(s): N18.3 - Chronic kidney disease, stage 3 (moderate) (3) DVT (deep venous thrombosis) Current Visit: No Status: Acute Assessment and plan: recent DVT 3 months ago, given proximal site and unprovoked, high risk fro PE. AC had to be held given significant drop in h/h, green field filter has been placed. denies pain or swelling at this time. melvina f/u onco recommendations on restarting AC. Qualifiers: DVT location: lower extremity Affected thrombotic vein of extremity: unspecified vein of extremity Laterality: right Chronicity: unspecified Qualified Code(s): I82.401 - Acute embolism and thrombosis of unspecified deep veins of right lower extremity (4) Anemia Current Visit: No Status: Chronic Assessment and plan: microcytic anemia. possible 2/2 chronic blood loss and iron def iron with tsat is low, will start on IV ferrous sulfate for now. transfuse as needed Qualifiers: Iron deficiency anemia type: chronic blood loss Qualified Code(s): D50.0 - Iron deficiency anemia secondary to blood loss (chronic) - Time Spent With Patient 25 - 35 minutes - Subjective Interval history: seen at the bedside,admitted for GIB, recent DVT started on coumadin cardio and GI has been consulted for the concern of GIB and drop in h/h s/p IVC filter, coumadin has been held. - Constitutional Vitals: Temp Pulse Resp BP Pulse Ox 97.5 F L 65 18 153/85 93 11/09/16 11:39 11/09/16 12:50 11/09/16 12:50 11/09/16 12:50 11/09/16 12:50 General appearance: Present: A&O X 3, no acute distress Exam: HEENT: Atraumatic Neck: No JVD Cardiac: Reg Rate and Rhythm Lungs: Normal Breath Sounds Neuro: Alert and responsive Abdomen: Soft, non tender , bs are present Skin: No rashes noted on visualized skin Musculoskeletal: No Chest Wall Tenderness Extremities: Normal Pulses Internal Medicine: Result - Labs CBC & Chem 7: 11/09/16 04:47 11/08/16 06:32 Labs: Short CBC 11/09/16 Range/Units 04:47 WBC 4.7 (4.3-11.1) K/mcL Hgb 8.1 L (11.5-15.4) g/dL Hct 28.8 L (35.3-44.9) % Plt Count 298 (140-400) K/mcL Neutrophils # 3.1 (1.6-8.9) K/mcL - ABG Interpretation ABG results: PT/INR, D-dimer PT 17.6 Seconds (9.4-12.1) H 11/09/16 04:47 Consult Discharge Plan - Plan Referrals: Rebecca Gilbert CNP [Primary Care Provider] - 11/14/16 9:00 am (please follow up as schedule...)
[2016-11-10] MEDS: Pantoprazole 40 MG VIAL IVP SCH (08:27)
[2016-11-10] MEDS: Iron Sucrose Complex 200 MG in 0.9 % Sodium Chloride 100 ML IVPB SCH (08:28)
[2016-11-10 09:43] LABS: Eosinophils % 6.2 %; Hemoglobin 8.9 g/dL (11.5-15.4); Mean Platelet Volume 9.8 fL (9.4-12.4)
[2016-11-10 09:45] LABS: Basophils # 0.1 K/mcL (0.0-0.2); Eosinophils # 0.3 K/mcL (0.0-0.6); Hematocrit 31.2 % (35.3-44.9); Lymphocytes # 0.9 K/mcL (0.6-4.6); Lymphocytes % 17.5 %; Mean Corpuscular HGB Conc 28.5 g/dL (31.6-35.5); Mean Corpuscular Hemoglobin 20.6 pg (28.0-33.3); Mean Corpuscular Volume 72.4 fL (83.0-100.0); Monocytes # 0.4 K/mcL (0.0-1.3); Neutrophils # 3.3 K/mcL (1.6-8.9); Nucleated Red Blood Cells 0.4 /100 WBC (0); Platelet Count 320 K/mcL (140-400); Red Blood Count 4.31 M/mcL (3.82-4.97); Red Cell Distribution Width 20.1 % (11.5-14.5); Segmented Neutrophils % 66.3 %
[2016-11-10 09:51] LABS: Calcium 9.6 mg/dL (8.6-10.8); Potassium 3.8 mEq/L (3.5-4.5)
[2016-11-10 10:08] LABS: Hypochromasia Present (Not Present); Platelet Estimate Normal (Normal)
[2016-11-10 10:42] VITALS: BP 126/77
--- NOTE | 2016-11-10 14:31 | Discharge Summary ---
Date of Encounter: 11/10/16 Time of Encounter: 14:28 - Discharge Diagnosis (1) GI bleeding Priority: Primary Status: Acute Qualifiers: GI bleed type/associated pathology: unspecified gastrointestinal hemorrhage type Qualified Code(s): K92.2 - Gastrointestinal hemorrhage, unspecified (2) CKD (chronic kidney disease) Priority: Secondary Status: Acute Qualifiers: Chronic kidney disease stage: stage 3 (moderate) Qualified Code(s): N18.3 - Chronic kidney disease, stage 3 (moderate) (3) DVT (deep venous thrombosis) Priority: Primary Status: Acute Qualifiers: DVT location: lower extremity Affected thrombotic vein of extremity: unspecified vein of extremity Laterality: right Chronicity: unspecified Qualified Code(s): I82.401 - Acute embolism and thrombosis of unspecified deep veins of right lower extremity (4) Anemia Priority: Secondary Status: Chronic Qualifiers: Iron deficiency anemia type: chronic blood loss Qualified Code(s): D50.0 - Iron deficiency anemia secondary to blood loss (chronic) - Discharge Medications Prescriptions: Pantoprazole Sodium 40 mg PO DAILY #30 tablet. Sucralfate [Carafate] 1 gm PO TID 14 Days Home Medications: Cetirizine HCl [Zyrtec] 10 mg PO QPM 10/31/15 [History] Citalopram [CeleXA] 40 mg PO QAM 10/31/15 [History] Lisinopril [Zestril] 20 mg PO QAM 10/31/15 [History] Magnesium Oxide [Magnesium] 500 mg PO QAM 10/31/15 [History] Amlodipine [Norvasc] 2.5 mg PO QAM 08/06/16 [History] Lisinopril [Zestril] 10 mg PO QPM 08/06/16 [History] Metoprolol Tartrate 25 mg PO BID 08/06/16 [History] Pantoprazole Sodium 40 mg PO DAILY #30 tablet. 11/10/16 [Rx] Sucralfate [Carafate] 1 gm PO TID 14 Days 11/10/16 [Rx] Allergies/Adverse Reactions: Allergies doxycycline Allergy (Verified 08/06/16 18:53) Itching nystatin [From Mycolog II] Allergy (Verified 08/06/16 18:53) Rash Penicillins Allergy (Verified 08/06/16 18:53) Swelling of Lip/Tongue/Throat Sulfa (Sulfonamide Antibiotics) Allergy (Verified 08/06/16 18:53) See Comments Swelling triamcinolone [From Mycolog II] Allergy (Verified 08/06/16 18:53) Rash Procedures/tests Complete & Pending: Procedures Performed prior 72 hours Category Date Time Status CL IVC Filter [CL] Routine Pairer 11/08/16 09:10 Completed Date of admission: 11/07/16 14:52 Primary care physician: Rebecca Gilbert CNP Consults: 11/07/16 14:56 Consult to Cardiology [CONS] Routine Comment: Consulting Provider: [facility] [place] Reason for Consult: pROXIMAL dvt 3 MONTH AGO? UNPROVOKED. Now acute blood loss anemia due to GI bleed. IVC filter? Call Completed: Yes Discharging clinician: Melissa Jones Anticipated date of discharge: 11/10/16 - Patient Status Disposition: Home, Self-Care Condition: Fair Functional capacity at discharge: independent ambulation Overall status at discharge: patient is back to baseline - Discharge Instructions Instructions: Sucralfate (By mouth), Pantoprazole (By mouth), Chronic Hypertension (DC) Follow Up With: Rebecca Gilbert CNP [Primary Care Provider] - 11/14/16 9:00 am (please follow up as schedule...) Lorenzo Olivarez MD [Partnered Physician] - - Diet and Activity Activity: resume usual activities as tolerated Diet: advance to your usual diet Interval History: Ms. Brantley is a 65 year old female with PMHx of DVT Jul 2016-on Coumadin, uterine cancer 30 years ago s/p hysterectomy, vaginal cancer 20 years ago s/p chemotherapy who presented to the ED with Hgb of 6.6, SOB, weakness. She was started on Coumadin recently for her DVT. She reports one episode of melena about 1 month ago, but denies any since that time. She denies hematochezia or hematemesis. On admisison her Hgb was 6.6 and has received 2 units PRBC and 2 FFP. Hgb improved to 8.1. Procedures: Colonoscopy 10/21/2012 Dr. Arellano sigmoid colon was tortuous and fixed , internal hemorrhoids EGD 10/20/2012 Dr Arellano normal esophagus, hiatus hernia, gastritis NSAIDs: None Anticoagulation: Coumadin SHE was admitted for further evaluation. COumadin was held. GI and oncology was consylted. she underwent EGD that showed large hiatal hernia with gastritis. SHE was recommended to be started on PPI and carafate. there was no active bleeding on EGD. seen by oncology and recommended that AC to be held for now and she will be f/u as OP with DR. Iyer in 1 week. she was also seen by cardiology adn a green filter was placed given recent DVT that is proximal with high risk for PE with no anticoagulation. hence her couadin will be held for now, she has no complains and no benjamin or active GI bleed, Hb is stable at 8.9.she will follow up at OP with DR. Iyer in 1 week. Hospital course: Ms. Brantley is a 65 year old female Time spent discussing smoking cessation with patient: more than 10 minutes - Time Spent with Patient Total time spent providing and/or coordinating discharge services: Greater than 30 minutes - Constitutional Vitals: Temp Pulse Resp BP Pulse Ox 98.3 F 56 16 126/77 96 11/10/16 10:40 11/10/16 10:40 11/10/16 10:40 11/10/16 10:40 11/10/16 10:40 General appearance: Present: A&O X 3, no acute distress Exam: - Head Head exam: Present: atraumatic, normocephalic - Eye Eye exam: Present: normal appearance, sclera anicteric - ENT ENT exam: Present: mucous membranes moist - Neck Neck exam general surgery: Present: normal inspection, trachea midline - Respiratory Respiratory exam: Present: CTAB. Absent: rales, rhonchi - Cardiovascular Cardiovascular exam: Present: RRR, +S1, +S2 - GI/Abdominal GI/Abdominal exam: Present: soft, no peritoneal signs. Absent: distended, firm , guarding, tenderness - Rectal Rectal exam: Present: deferred - Extremities Exam Extremities exam: Present: warm - Neurological Exam Neurological exam: Present: no focal deficits - Psychiatric Psychiatric exam: Present: normal affect, normal mood - Skin Skin exam: Present: dry, intact, normal color, warm
[2016-11-10] MEDS ORDERED: *HR* Propofol 200 MG/20 ML VIAL IVP ONE (15:29)
[2016-11-10] MEDS ORDERED: Lidocaine -MPF 2% 5 ML VIAL INFILT ONE (15:29)
--- NOTE | 2016-11-23 07:36 | Oncology Office Consult Note ---
HPI-History of Present Illness Primary Care Provider: Rebecca Gilbert CNP Interval history: Very pleasant [default value]-year-old [default value] patient of [default value ] seen in consultation regarding [default value]. [default value] was kind enough to send the patient's records ahead of today's visit which I reviewed for clinical background. Records have been scanned to EMR as appropriate. Chronic problems: Rest of past medical, surgical, family, social history detailed below and verified with the patient today. Interval history: [default value] ROS form completed by patient is positive for:[default value] Past Medical History [default value] Surgical History [default value] Family History [default value] Social history: Tobacco: [default value] Alcohol:[default value] Recreational drugs:[default value] Marital Status:[default value] Occupation:[default value] Living situation:[default value] Advanced directives: [default value] Review of systems: 12 point review of systems performed with patient and positive findings noted in history of present illness. All other systems are negative: Physical exam: ECOG performance status: [default value] GENERAL: Alert and oriented, well appearing. Mental Status: Affect appropriate for circumstances HEENT: Sclerae anicteric. No mucositis or thrush. No other oral or pharyngeal lesions or erythema. Skin: No rashes or petechiae. No evidence of skin malignancy Lymph nodes: No cervical, supraclavicular, axillary, or inguinal adenopathy. Lungs: Clear to auscultation bilaterally. Clear to percussion bilaterally. Cardiovascular: Regular rate and rhythm. No gallops, murmurs, or rubs. Abdomen: Soft, nontender; No organomegaly or masses palpable. Extremities: No edema. No calf swelling or tenderness. No joint deformity. Neurologic: Alert, normal gait; no focal weakness or sensory abnormalities. [default value] Laboratory studies:[default value] Radiographic studies:[default value] I personally reviewed and interpreted patient's most recent imaging studies dated [default value] I discussed the findings with the patient [default value] today. Impression/recommendations: [default value] Issues concerning treatment and diagnosis were discussed. There were no barriers to understanding. Discussion was well received by patient who then verbalized understanding. I appreciate the opportunity to participate in the care of this extremely pleasant patient. This report was partly created using voice recognition software and may contain wording errors/typos . A reasonable attempt was made to edit prior to signing to expedite communication. If corrections are indicated or requested, document will be addended and dated accordingly. Vitals and History - Height/Weight/Pain Height: 1.55 m - Pulse Oximetry Oxygen Delivery Method: Room Air O2 Sat by Pulse Oximetry: 96 - Consciousness/Orientation Level Of Consciousness: Awake, Alert, Appropriate Patient Orientation: Person, Place, Time - Social History Smoking Status: Current every day smoker Smokeless Tobacco Status: No Alcohol use PMH: occasionally Drug use: none Review Of Systems - Exam Provider Comments:: 12 point review of systems performed with patient who has also filled out a review of systems worksheet that is filed in the electronic record. Pertinent positives are listed below. All other systems are negative: Oncology - Medications Prescriptions: Pantoprazole Sodium 40 mg PO DAILY #30 tablet. Sucralfate [Carafate] 1 gm PO TID 14 Days Cetirizine HCl [Zyrtec] 10 mg PO QPM 10/31/15 [History] Citalopram [CeleXA] 40 mg PO QAM 10/31/15 [History] Lisinopril [Zestril] 20 mg PO QAM 10/31/15 [History] Magnesium Oxide [Magnesium] 500 mg PO QAM 10/31/15 [History] Amlodipine [Norvasc] 2.5 mg PO QAM 08/06/16 [History] Lisinopril [Zestril] 10 mg PO QPM 08/06/16 [History] Metoprolol Tartrate 25 mg PO BID 08/06/16 [History] Pantoprazole Sodium 40 mg PO DAILY #30 tablet. 11/10/16 [Rx] Sucralfate [Carafate] 1 gm PO TID 14 Days 11/10/16 [Rx] Allergies doxycycline Allergy (Verified 08/06/16 18:53) Itching nystatin [From Mycolog II] Allergy (Verified 08/06/16 18:53) Rash Penicillins Allergy (Verified 08/06/16 18:53) Swelling of Lip/Tongue/Throat Sulfa (Sulfonamide Antibiotics) Allergy (Verified 08/06/16 18:53) See Comments Swelling triamcinolone [From Mycolog II] Allergy (Verified 08/06/16 18:53) Rash
== END 2016-11-10 15:30 | disposition home or self-care (01) | DRG 357 ==
LOC: 2ANU 11:00 → EMEROO 11:00 → 2ANU 14:18
PROVIDERS: ADMIT Internal Medicine; ATTEND Internal Medicine Endocrinology, Diabetes & Metabolism

== ENCOUNTER 2020-03-24 12:15 | Inpatient (IN) ==
[2020-03-24] MEDS ORDERED: Isovue-370 500 ML BOTTLE IVP ONE (12:35)
[2020-03-24 12:44] LABS: Hematocrit 46.1 % (35.3-44.9); Hemoglobin 14.3 g/dL (11.5-15.4); Mean Corpuscular Hemoglobin 27.5 pg (28.0-33.3); Mean Corpuscular Volume 88.7 fL (83.0-100.0); Mean Platelet Volume 9.2 fL (9.4-12.4); Platelet Count 303 K/mcL (140-400); Red Cell Distribution Width 13.6 % (11.5-14.5); White Blood Count 5.4 K/mcL (4.3-11.1)
[2020-03-24 12:53] LABS: INR 2.3; Prothrombin Time 25.6 Seconds (9.4-12.1)
[2020-03-24 12:55] LABS: Activated Partial Thrombo Time 46.4 Seconds (26.0-36.0)
[2020-03-24 14:15] LABS: Troponin I < 0.03 ng/mL (< 0.04)
[2020-03-24 14:27] LABS: BUN/Creatinine Ratio 20 (6-26); Blood Urea Nitrogen 21 mg/dL (8-23); Calcium 9.5 mg/dL (8.6-10.3); Carbon Dioxide 25 mEq/L (23-29); Chloride 105 mEq/L (98-107); Glucose 91 mg/dL (70-105); Osmolality,Calculated 293 (280-300); Potassium 4.4 mEq/L (3.5-5.1); Sodium 140 mEq/L (136-145); eGFR For African Americans > 60 (> 60); eGFR For Non-African Americans 52 (> 60)
[2020-03-24] MEDS ORDERED: Naloxone 0.4 MG/ML INJ IVP PRN (14:42)
[2020-03-24] MEDS ORDERED: Perflutren Lipid Microsphere 1.3 ML in 0.9 % Sodium Chloride 8.7 ML IVP PRN (17:42)
[2020-03-24] MEDS ORDERED: Spironolactone 25 MG TABLET PO PRN (17:46)
[2020-03-24] MEDS ORDERED: Warfarin perPT PO PRN (18:00)
[2020-03-24] MEDS ORDERED: *HR* Warfarin 5 MG TABLET PO ONE (18:30)
[2020-03-24] MEDS: OLANZapine 5 MG TAB.RAPDIS PO SCH (18:38)
[2020-03-24] MEDS: Loratadine 10 MG TABLET PO SCH (18:38)
[2020-03-24] MEDS: Niacin (24 HR) 500 MG TAB.ER.24H PO SCH (18:39)
[2020-03-24] MEDS: lisinopriL 20 MG TABLET PO SCH (20:47)
[2020-03-25 06:31] LABS: Hematocrit 44.7 % (35.3-44.9); Hemoglobin 13.8 g/dL (11.5-15.4); Mean Corpuscular HGB Conc 30.9 g/dL (31.6-35.5); Mean Corpuscular Hemoglobin 27.6 pg (28.0-33.3); Mean Corpuscular Volume 89.4 fL (83.0-100.0); Mean Platelet Volume 9.4 fL (9.4-12.4); Platelet Count 269 K/mcL (140-400); Red Cell Distribution Width 13.4 % (11.5-14.5); White Blood Count 4.4 K/mcL (4.3-11.1)
[2020-03-25 06:41] LABS: INR 2.4; Prothrombin Time 27.7 Seconds (9.4-12.1)
[2020-03-25 06:53] LABS: Alanine Aminotransferase 14 Units/L (7-52); Albumin 3.7 g/dL (3.5-5.7); Albumin/Globulin Ratio 1.4 (1.1-2.2); Alkaline Phosphatase 70 Units/L (34-104); Aspartate Amino Transferase 18 Units/L (13-39); BUN/Creatinine Ratio 19 (6-26); Bilirubin,Total 0.4 mg/dL (0.3-1.0); Blood Urea Nitrogen 19 mg/dL (8-23); Calcium 9.7 mg/dL (8.6-10.3); Carbon Dioxide 28 mEq/L (23-29); Chloride 106 mEq/L (98-107); Chol/HDL Ratio 4.3 (0-4.9); Cholesterol 219 mg/dL (< 200); Globulin 2.6 g/dL (2.4-3.5); Glucose 90 mg/dL (70-105); HDL Cholesterol 51 mg/dL (40-59); LDL Cholesterol,Calculated 129 mg/dL (< 100); Osmolality,Calculated 290 (280-300); Potassium 4.3 mEq/L (3.5-5.1); Sodium 139 mEq/L (136-145); Total Protein 6.3 g/dL (6.4-8.9); Triglycerides 195 mg/dL (< 150); eGFR For African Americans > 60 (> 60); eGFR For Non-African Americans 55 (> 60)
[2020-03-25] MEDS: amLODIPine 5 MG TABLET PO SCH (09:02)
[2020-03-25] MEDS: Magnesium Oxide 400 MG TABLET PO SCH (09:02)
[2020-03-25] MEDS: Aspirin Enteric Coated 81 MG Tablet PO SCH (09:03)
[2020-03-25] MEDS: lisinopriL 20 MG TABLET PO SCH ×2 (09:03→21:21)
[2020-03-25] MEDS ORDERED: *HR* Warfarin 5 MG TABLET PO ONE (09:10)
[2020-03-25] MEDS: OLANZapine 5 MG TAB.RAPDIS PO SCH (17:34)
[2020-03-25] MEDS: Niacin (24 HR) 500 MG TAB.ER.24H PO SCH (17:34)
[2020-03-25] MEDS: Loratadine 10 MG TABLET PO SCH (17:34)
[2020-03-26 02:54] LABS: INR 2.6; Prothrombin Time 29.1 Seconds (9.4-12.1)
[2020-03-26] MEDS: lisinopriL 20 MG TABLET PO SCH (07:46)
[2020-03-26] MEDS: amLODIPine 5 MG TABLET PO SCH (07:46)
[2020-03-26] MEDS: Aspirin Enteric Coated 81 MG Tablet PO SCH (07:46)
[2020-03-26] MEDS: Magnesium Oxide 400 MG TABLET PO SCH (07:48)
[2020-03-26] MEDS ORDERED: *HR* Warfarin 2.5 MG TABLET PO ONE (09:00)
[2020-03-26 11:06] VITALS: BP 138/79
== END 2020-03-26 15:35 | disposition home or self-care (01) | DRG 68 ==
LOC: EMEROOARM 12:15 → 3BNU 12:15 → SUATTDRO 14:46 → 3BNU 16:34
PROVIDERS: ADMIT Student in an Organized Health Care Education/Training Program; ATTEND Nurse Practitioner Adult Health

== ENCOUNTER 2020-03-30 10:05 | Inpatient (IN) ==
[2020-03-30] MEDS ORDERED: Lidocaine -MPF 2% 2 ML VIAL ONE ×3 (10:28→10:57)
[2020-03-30] MEDS ORDERED: Dexamethasone 4 MG/ML VIAL ONE ×2 (10:28→12:50)
[2020-03-30] MEDS ORDERED: Lidocaine -MPF 4% 5 ML AMPUL ONE (10:28)
[2020-03-30] MEDS ORDERED: *HR* Succinylcholine 200 MG/10 ML VIAL IVP ONE ×2 (10:28→10:42)
[2020-03-30] MEDS ORDERED: CeFAZolin Syr 2,000MG/20 ML 2,000 MG/20 ML SYRINGE IVPB ONE (10:28)
[2020-03-30] MEDS ORDERED: Ondansetron 4 MG/2 ML VIAL ONE ×2 (10:28→12:50)
[2020-03-30] MEDS ORDERED: *HR* Phenylephrine 10 MG/ML VIAL ONE ×2 (10:28→10:51)
[2020-03-30] MEDS ORDERED: *HR* FentaNYL (PF) 100 MCG/2 ML VIAL ONE ×2 (10:29→10:41)
[2020-03-30] MEDS ORDERED: *HR* Remifentanil 1 MG VIAL IVP ONE ×2 (10:29→10:41)
[2020-03-30] MEDS ORDERED: *HR* Propofol 200 MG/20 ML VIAL IVP ONE ×2 (10:29→10:41)
[2020-03-30] MEDS ORDERED: EPHEDrine 50 MG/ML VIAL ONE ×2 (10:29→11:50)
[2020-03-30] MEDS ORDERED: Ringers Solution, Lactated 1,000 ML IVC SCH (10:30)
[2020-03-30] MEDS ORDERED: Heparin 1,000 UNITS/500 mL 0 ML ONE (10:36)
[2020-03-30] MEDS ORDERED: Bupivacaine-MPF 0.25% 10 ML VIAL ONE (10:42)
[2020-03-30] MEDS ORDERED: Protamine Sulfate 50 MG/5 ML VIAL IVP ONE (10:42)
[2020-03-30] MEDS ORDERED: Heparin 1,000 UNITS/500 mL 1,000 ML ONE (10:42)
[2020-03-30] MEDS ORDERED: Lidocaine HCL 4 ML Topical Solution (Laryng-O-Jet Kit Sterile Pak) TP ONE (10:42)
[2020-03-30] MEDS ORDERED: *HR* PHENYLEPHRINE 1,000 MCG/10 ML SYRINGE IVP ONE (10:51)
[2020-03-30] MEDS ORDERED: Vancomycin 1,250 MG/262.5 ML IV.SOLN IVPB ONE (10:53)
[2020-03-30] MEDS ORDERED: *HR* Heparin 5,000 UNIT/ML VIAL ONE ×2 (10:53→12:50)
[2020-03-30] MEDS ORDERED: *HR* Promethazine 25 MG/ML VIAL IVP PRN (11:13)
[2020-03-30] MEDS ORDERED: *HR* OxyCODONE Immed Rel 5 MG TABLET PO PRN ×3 (11:13→15:34)
[2020-03-30] MEDS ORDERED: Ondansetron 4 MG/2 ML VIAL IVP ONE (11:13)
[2020-03-30] MEDS ORDERED: *HR* HYDROmorphone PF 0.5 MG/0.5 ML SYRINGE IVP PRN (11:13)
[2020-03-30] MEDS ORDERED: Vancomycin 1,000 MG, Sodium Chloride IRRigation 1,000 ML IR ONE (12:30)
[2020-03-30] MEDS ORDERED: *HR* HYDROcodone/Acet 5/325 mg TABLET PO PRN ×2 (15:34)
[2020-03-30] MEDS ORDERED: Naloxone 0.4 MG/ML INJ IVP PRN (15:34)
[2020-03-30] MEDS ORDERED: *HR* Labetalol 20 MG/4 ML SYRINGE IVP PRN (15:34)
[2020-03-30] MEDS ORDERED: 0.9 % Sodium Chloride 1,000 ML IVC SCH (15:34)
[2020-03-30] MEDS ORDERED: Ondansetron 4 MG/2 ML VIAL IVP PRN (15:34)
[2020-03-30] MEDS ORDERED: Spironolactone 25 MG TABLET PO PRN (15:34)
[2020-03-30] MEDS ORDERED: Acetaminophen 325 MG TABLET PO PRN ×2 (15:34)
[2020-03-30] MEDS: CeFAZolin 2 GM/120 ML BAG IVPB SCH (16:52)
[2020-03-30] MEDS ORDERED: Niacin (24 HR) 500 MG TAB.ER.24H PO SCH (18:00)
[2020-03-30] MEDS ORDERED: OLANZapine 5 MG TAB.RAPDIS PO SCH (18:00)
[2020-03-30] MEDS ORDERED: Loratadine 10 MG TABLET PO SCH (18:00)
[2020-03-30] MEDS ORDERED: *HR* Heparin 5,000 UNIT/ML VIAL SQ SCH (18:00)
[2020-03-30] MEDS: *HR* Metoprolol 5 MG/5 ML VIAL IVP SCH (18:19)
[2020-03-30] MEDS: *HR* Heparin 5,000 UNIT/ML VIAL SQ SCH (18:20)
[2020-03-30] MEDS: lisinopriL 20 MG TABLET PO SCH (20:15)
[2020-03-31] MEDS ORDERED: Vancomycin 1,250 MG/262.5 ML IV.SOLN IVPB ONE
[2020-03-31] MEDS: *HR* Metoprolol 5 MG/5 ML VIAL IVP SCH ×2 (00:05→06:25)
[2020-03-31] MEDS: CeFAZolin 2 GM/120 ML BAG IVPB SCH (00:07)
[2020-03-31] MEDS: *HR* Heparin 5,000 UNIT/ML VIAL SQ SCH (05:32)
[2020-03-31 06:55] VITALS: BP 107/36
[2020-03-31] MEDS ORDERED: Magnesium Oxide 400 MG TABLET PO SCH (09:00)
[2020-03-31] MEDS ORDERED: NON-FORMULARY MEDICATION 1 EACH EACH (Omega-3s/Dha/Epa/Fish Oil [Fish Oil Omega-3 Softgel] PO SCH (09:00)
[2020-03-31] MEDS ORDERED: amLODIPine 5 MG TABLET PO SCH (09:00)
[2020-03-31] MEDS ORDERED: Aspirin Enteric Coated 81 MG Tablet PO SCH (09:00)
[2020-03-31] MEDS: lisinopriL 20 MG TABLET PO SCH (10:38)
== END 2020-03-31 11:24 | disposition home or self-care (01) | DRG 38 ==
LOC: SAMDAY 10:05 → 2NNU 15:37
PROVIDERS: ADMIT Surgery; ATTEND Surgery